=== PATIENT | male | born 1940 | race Caucasian/White ===

== ENCOUNTER 2016-09-18 21:38 | Emergency (ER) | payer MEDICARE, OTHER ==
--- NOTE | 2016-09-18 21:48 | EDM.PDOC ---
ED HPI Trauma - General Chief Complaint: Trauma Stated Complaint: Fall at home; hit head Time Seen by Provider: 09/18/16 21:44 Source: Reports: Patient, EMS notes reviewed, Family, RN, RN notes reviewed History Limitations: Reports: No limitations - History of Present Illness INITIAL COMMENTS - FREE TEXT/NARRATIVE: Patient is brought to the ED at [facility] via EMS after he fell at home. Patient states he was walking through his kitchen to sit down in a chair, when he lost his balance and fell onto the floor. Patient states he hit his right ribs and also hit his head on the the floor. Patient denies any LOC. Patient has a history of multiple falls in the past. Patient complains of right lateral lower rib pain. Patient denies any visual field disturbances. Patient denies any headaches. Patient states he was recently started on Lasix this week in the clinic. Patient states "I got two shots of Lasix and started on 20 mg a day." Symptom Onset Date: 09/18/16 Symptom Onset Time: 21:00 Occurred When: just prior to arrival Occurred Where: home Method of Injury: fall Severity: mild Pain/Injury Location: Reports: chest (right lateral ribs) Consciousness: Reports: no loss of consciousness, remembers incident, remembers coming to hosp Associated Symptoms: Reports: no other symptoms Allergies/ADRs: Allergies penicillin G Allergy (Verified 09/18/16 22:23) Hives rosuvastatin calcium [From Crestor] Adverse Reaction (Verified 09/18/16 22:23) Leg Cramps Home Medications: Ambulatory Orders Clopidogrel [Plavix] 75 mg PO DAILY 09/05/14 [Confirmed 08/11/16] Gabapentin [Neurontin] 600 mg PO BEDTIME 09/05/14 [Confirmed 08/11/16] Lisinopril 20 mg PO DAILY 09/05/14 [Confirmed 08/11/16] Multivitamin [Multi-Vitamin Daily] 1 tab PO DAILY 09/05/14 [Confirmed 08/11/16] Pravastatin [Pravachol] 80 mg PO BEDTIME 09/05/14 [Confirmed 08/11/16] Propranolol HCl [Inderal LA] 120 mg PO DAILY 09/05/14 [Confirmed 08/13/16] Sertraline [Zoloft] 200 mg PO DAILY 09/05/14 [Confirmed 08/11/16] Albuterol [Proventil HFA] 2 puff INH Q4H PRN 06/29/15 [Confirmed 08/11/16] Fluticasone Propionate [Flonase] 1 spray SHIRLEY DAILY 06/29/15 [Confirmed 08/13/16] Pantoprazole 20 mg PO DAILY 06/29/15 [Confirmed 08/11/16] buPROPion [Wellbutrin XL] 150 mg PO DAILY 06/29/15 [Confirmed 08/11/16] Budesonide/Formoterol [Symbicort 160-4.5 MCG] 2 puff INH BID 05/18/16 [ Confirmed 08/11/16] Acetaminophen [Tylenol] 650 mg PO Q4H PRN #0 tablet 05/23/16 [Confirmed 08/11/16 ] Hydrochlorothiazide 25 mg PO DAILY 08/13/16 [Confirmed 08/13/16] Tamsulosin [Flomax] 0.4 mg PO DAILY 08/13/16 [Confirmed 08/13/16] rOPINIRole [Requip] 0.5 mg PO BEDTIME 08/13/16 [Confirmed 08/13/16] Past Medical History HEENT History: Reports: Allergic rhinitis, Hard of hearing, Impaired vision, Sinusitis Other HEENT History: chronic sinusitis, bilat hearing aids, glasses Cardiovascular History: Reports: Aneurysm, High cholesterol, Hypertension, Other (see below) Other Cardiovascular History: subclavian artery stonsis-left, AAA x 2 Respiratory History: Reports: COPD, Sleep apnea, Other (see below) Other Respiratory History: Pneumonia in June of 2015, pleural effusion, collapsed lung, chest tube Gastrointestinal History: Reports: Colon polyp, Diverticulosis, GERD, Hemorrhoids, Irritable bowel syndrome, Other (see below) Other Gastrointestinal History: abdominal aortic aneursymn x 2 Genitourinary History: Reports: Other (see below) Other Genitourinary History: suspects enlarged prostate due to unable to start urine stream Musculoskeletal History: Reports: Arthritis, Back pain, chronic, Other (see below) Other Musculoskeletal History: degenerative joint disease, restless leg syndrome , raynauds sydrome, essential tremor, weakness, hx of rib fx, right wrist fx, right hand Neurological History: Reports: CVA, Neuropathy, peripheral, Other (see below) Other Neuro History: near syncope Psychiatric History: Reports: Addiction, Anxiety, Depression, Emotional problems , Suicidal ideation Other Psychiatric History: recently lost his to cancer Endocrine/Metabolic History: Reports: None, Other (see below) Other Endocrine/Metabolic History: vitamin B12 deficiency, impaired fasting glucose Hematologic History: Reports: B12 deficiency Other Hematologic History: take Plavix Immunologic History: Reports: None Oncologic (Cancer) History: Reports: Other (see below) Other Oncologic History: lipoma of buttock Dermatologic History: Reports: None - Past Surgical History Head Surgeries/Procedures: Reports: None HEENT Surgical History: Reports: Polypectomy Cardiovascular Surgical History: Reports: None Respiratory Surgical History: Reports: Thoracentesis GI Surgical History: Reports: Appendectomy, Colonoscopy, Hernia, inguinal, Polypectomy Endocrine Surgical History: Reports: None Neurological Surgical History: Reports: C-Spine Other Neurological Surgeries/Procedures: c-6 and c5 per pt. Musculoskeletal Surgical History: Reports: Ganglion cyst, Joint replacement, Knee replacement, Other (see below) Other Musculoskeletal Surgeries/Procedures:: both knees replaced. Dermatological Surgical History: Reports: None Social & Family History - Family History Family Medical History: Noncontributory Cardiac: Reports: CAD, Cardiomyopathy, High cholesterol, Hypertension, [place] Musculoskeletal: Reports: Arthritis, Back pain, chronic Neurological: Reports: CVA Other Neurological Family History: sister had CVA Oncologic: Reports: Leukemia Other Oncologic Family History: father of Leukemia - Tobacco Use Smoking Status *Q: Current Every Day Smoker Years of Tobacco use: 60 Packs/Tins Daily: 0.5 Used Tobacco, but Quit: No Month Tobacco Last Used: today Second Hand Smoke Exposure: Yes - Caffeine Use Caffeine Use: Reports: None - Alcohol Use Days Per Week of Alcohol Use: 5 Number of Drinks Per Day: 4 Total Drinks Per Week: 20 - Recreational Drug Use Recreational Drug Use: No Drug Use in Last 12 Months: No Review of Systems - Review of Systems Review Of Systems: See Below Constitutional: Reports: weakness (chronic bilateral leg weakness). Denies: chills, fever Respiratory: Reports: pleuritic chest pain (right lateral lower ribs). Denies: shortness of breath, cough Cardiovascular: Denies: chest pain, lightheadedness, palpitations Musculoskeletal: Denies: neck pain, back pain Skin: Reports: no symptoms Neurological: Reports: difficulty walking (chronic bilateral lower leg weakness) . Denies: dizziness, headache, numbness, paresthesia, tingling ED EXAM, TRAUMA (MAJOR/MULTI) - Physical Exam Exam: See Below Exam Limited By: No limitations General Appearance: alert, no apparent distress Head: atraumatic, normocephalic Eyes: bilateral eye: normal inspection, PERRL Ears: normal external exam, normal canal, hearing grossly normal, normal TMs Nose: normal inspection, normal mucousa, no blood Throat/Mouth: Normal inspection, Normal oropharynx, No airway compromise Neck: non-tender, normal inspection Cardiovascular: normal peripheral pulses, regular rate, rhythm Respiratory/Chest: no respiratory distress, lungs clear, decreased breath sounds , rib tenderness, right Back: normal inspection, non-tender Neurologic: alert, oriented x 3 Skin: Normal color, Warm/dry - Marcos Coma Score Best Eye Response (Marcos): (4) open spontaneously Best Verbal Response ([place]): (5) oriented Best Motor Response (Marcos): (6) obeys commands Marcos Total: 15 Course - Vital Signs Last Recorded V/S: Last Vital Signs Temp 35.9 C 09/18/16 21:55 Pulse 72 09/18/16 21:55 Resp 16 09/18/16 21:55 BP 103/49 L 09/18/16 21:55 Pulse Ox 94 L 09/18/16 21:55 - Orders/Labs/Meds Orders: Active Orders 24 hr Category Date Time Status Head wo Cont [CT] Stat Exams 09/18/16 21:45 Taken Ribs 2V w Chest Rt [CR] Stat Exams 09/18/16 21:45 Taken Sodium Chloride 0.9% [Normal Saline] 1,000 ml Med 09/18/16 22:30 Active IV ASDIRECTED Sodium Chloride 0.9% [Saline Flush] Med 09/18/16 22:19 Active 10 ml FLUSH ASDIRECTED PRN Peripheral IV Insertion Adult [OM.PC] Routine Oth 09/18/16 22:19 Ordered Medication Orders Sodium Chloride (Normal Saline) 1,000 mls @ 999 mls/hr IV ASDIRECTED DAMIAN Last Admin: 09/18/16 22:30 Dose: 999 mls/hr Sodium Chloride (Saline Flush) 10 ml FLUSH ASDIRECTED PRN PRN Reason: Keep Vein Open Labs: Laboratory Tests 09/18/16 09/18/16 Range/Units 22:25 22:25 WBC 6.1 (4.0-10.0) x10^3/uL RBC 3.86 L (4.5-6.0) x10^6/uL Hgb 12.9 L (14.0-18.0) g/dL Hct 38.1 L (40.0-52.0) % MCV 98.7 H (78.0-93.0) fL MCH 33.4 H (26.0-32.0) pg MCHC 33.9 (32.0-36.0) g/dL RDW Coeff of Deric 14.9 (10.0-15.0) % Plt Count 138 (130-400) x10^3/uL Neut % (Auto) 66.9 (50.0-80.0) % Lymph % (Auto) 21.2 L (25.0-50.0) % Titus % (Auto) 8.5 (2.0-11.0) % Eos % (Auto) 3.1 (0.0-4.0) % Baso % (Auto) 0.3 (0.2-1.2) % Sodium 143 (136-145) mmol/L Potassium 3.8 (3.5-5.1) mmol/L Chloride 103 (98-107) mmol/L Carbon Dioxide 28 (21-32) mmol/L BUN 28 H (7-18) mg/dL Creatinine 2.6 H (0.70-1.30) mg/dL Est Cr Clr Drug Dosing 24.55 mL/min Estimated GFR (MDRD) 24 Glucose 98 (74-106) mg/dL Calcium 8.9 (8.5-10.1) mg/dL Ethyl Alcohol 70 H (0-3) mg/dL Meds: Medications Generic Name Dose Route Start Last Admin Trade Name Freq PRN Reason Stop Dose Admin Sodium Chloride 1,000 mls @ 999 mls/hr 09/18/16 22:30 09/18/16 22:30 Normal Saline IV 999 mls/hr ASDIRECTED DAMIAN Administration Sodium Chloride 10 ml 09/18/16 22:19 Saline Flush FLUSH ASDIRECTED PRN Keep Vein Open Departure - Departure Time of Disposition: 22:54 Disposition: Home, Self-Care 01 Condition: good Clinical Impression: Leg weakness, bilateral Closed head injury without loss of consciousness Qualifiers: Encounter type: initial encounter Qualified Code(s): S09.90XA - Unspecified injury of head, initial encounter Fall at home Qualifiers: Encounter type: initial encounter Qualified Code(s): W19.XXXA - Unspecified fall, initial encounter Instructions: Head Injury, Adult, [id number] Referrals: [employer] [Primary Care Provider] - Forms: ED Department Discharge Additional Instructions: 1. Stay well hydrated and rest 2. Continue your current medications; no changes needed 3. Use assistive devices at home to help prevent falls 4. See your Primary Care Provider for a follow up visit; your symptoms may or may not be from recent water pills ED Communication - ED Communication Date/Time Date: 09/18/16 Time Called: 22:45 - Discussed Case With (1) Discussed Case With (1): Radiologist Person/s Notified (1): Travis Miller - Conversation Summary Radiology Reading Discussed with Radiologist: Yes Summary Comment: No acute findings on CT of Head; Rib series is normal - Problem List Review Problem List Initiated/Reviewed/Updated: Yes - My Orders Last 24 Hours: My Active Orders 09/18/16 21:45 Head wo Cont [CT] Stat Ribs 2V w Chest Rt [CR] Stat 09/18/16 22:19 Sodium Chloride 0.9% [Saline Flush] 10 ml FLUSH ASDIRECTED PRN Peripheral IV Insertion Adult [OM.PC] Routine 09/18/16 22:30 Sodium Chloride 0.9% [Normal Saline] 1,000 ml IV ASDIRECTED - Assessment/Plan Last 24 Hours: My Active Orders 09/18/16 21:45 Head wo Cont [CT] Stat Ribs 2V w Chest Rt [CR] Stat 09/18/16 22:19 Sodium Chloride 0.9% [Saline Flush] 10 ml FLUSH ASDIRECTED PRN Peripheral IV Insertion Adult [OM.PC] Routine 09/18/16 22:30 Sodium Chloride 0.9% [Normal Saline] 1,000 ml IV ASDIRECTED
[2016-09-18] MEDS ORDERED: Sodium Chloride 0.9% 10 ML Syringe FLUSH PRN (22:19)
[2016-09-18] MEDS ORDERED: Sodium Chloride 0.9% 1,000 ML IV SCH (22:30)
[2016-09-19 00:57] VITALS: BP 115/59
[2016-09-19] MEDS ORDERED: Norepinephrine 4 MG/4 ML SDV ONE (03:17)
== END 2016-09-19 00:05 | disposition home or self-care (01) ==
LOC: VM.ED 21:38
DX: S09.90XA Unspecified injury of head, initial encounter (principal); M62.81 Muscle weakness (generalized); E78.00 Pure hypercholesterolemia, unspecified; I10 Essential (primary) hypertension; J44.9 Chronic obstructive pulmonary disease, unspecified; F41.9 Anxiety disorder, unspecified; F32.9 Major depressive disorder, single episode, unspecified; F17.210 Nicotine dependence, cigarettes, uncomplicated; Z88.0 Allergy status to penicillin; Z88.8 Allergy status to other drugs, medicaments and biological substances; Z79.899 Other long term (current) drug therapy; W19.XXXA Unspecified fall, initial encounter
CPT/HCPCS: 36415; 70450; 71101; 80048; 85025; 96360; 99285; G0480; J7030; 99283-GF

== ENCOUNTER 2016-09-19 02:55 | Emergency (ER) | payer MEDICARE, OTHER ==
[2016-09-19] MEDS ORDERED: Sodium Chloride 0.9% 10 ML Syringe FLUSH PRN (03:02)
--- NOTE | 2016-09-19 03:09 | EDM.PDOC ---
ED HISTORY OF PRESENT ILLNESS - General Chief Complaint: Respiratory Problem Stated Complaint: WEAKNESS, HYPOTENSION Time Seen by Provider: 09/19/16 03:01 Source of Information: Reports: EMS notes reviewed, Family, RN, RN notes reviewed History Limitations: Reports: No limitations - History of Present Illness INITIAL COMMENTS - FREE TEXT/NARRATIVE: Patient is brought back to the ED at [facility] via EMS for hypotension, weakness, and obtunded. Patient was seen in this ER one hour prior for a fall at home. Patient was medically cleared through CT scans, blood work, and stable vitals and was sent home. According to EMS, patient was brought home from this facility by his daughter. He was placed on the cough at home. Apparently the patient wanted to get up from the cough and was too weak. The daughter checked his blood pressure and it was in the 60's. 911 was called again. Symptom Onset Date: 09/19/16 Symptom Onset Time: 02:00 Timing/Duration: Reports: Getting worse Severity: mild - Related Data Allergies/ADRs: Allergies Allergy/AdvReac Type Severity Reaction Status Date / Time penicillin G Allergy Hives Verified 09/18/16 22:23 rosuvastatin calcium AdvReac Leg Cramps Verified 09/18/16 22:23 [From Crestor] Home Meds: Home Meds Clopidogrel [Plavix] 75 mg PO DAILY 09/05/14 [History] Gabapentin [Neurontin] 600 mg PO BEDTIME 09/05/14 [History] Lisinopril 20 mg PO DAILY 09/05/14 [History] Multivitamin [Multi-Vitamin Daily] 1 tab PO DAILY 09/05/14 [History] Pravastatin [Pravachol] 80 mg PO BEDTIME 09/05/14 [History] Propranolol HCl [Inderal LA] 120 mg PO DAILY 09/05/14 [History] Sertraline [Zoloft] 200 mg PO DAILY 09/05/14 [History] Albuterol [Proventil HFA] 2 puff INH Q4H PRN 06/29/15 [History] Fluticasone Propionate [Flonase] 1 spray SHIRLEY DAILY 06/29/15 [History] Pantoprazole 20 mg PO DAILY 06/29/15 [History] buPROPion [Wellbutrin XL] 150 mg PO DAILY 06/29/15 [History] Budesonide/Formoterol [Symbicort 160-4.5 MCG] 2 puff INH BID 05/18/16 [History] Acetaminophen [Tylenol] 650 mg PO Q4H PRN #0 tablet 05/23/16 [Rx] Hydrochlorothiazide 25 mg PO DAILY 08/13/16 [History] Tamsulosin [Flomax] 0.4 mg PO DAILY 08/13/16 [History] rOPINIRole [Requip] 0.5 mg PO BEDTIME 08/13/16 [History] Past Medical History HEENT History: Reports: Allergic rhinitis, Hard of hearing, Impaired vision, Sinusitis Other HEENT History: chronic sinusitis, bilat hearing aids, glasses Cardiovascular History: Reports: Aneurysm, High cholesterol, Hypertension, Other (see below) Other Cardiovascular History: subclavian artery stonsis-left, AAA x 2 Respiratory History: Reports: COPD, Sleep apnea, Other (see below) Other Respiratory History: Pneumonia in June of 2015, pleural effusion, collapsed lung, chest tube Gastrointestinal History: Reports: Colon polyp, Diverticulosis, GERD, Hemorrhoids, Irritable bowel syndrome, Other (see below) Other Gastrointestinal History: abdominal aortic aneursymn x 2 Genitourinary History: Reports: Other (see below) Other Genitourinary History: suspects enlarged prostate due to unable to start urine stream Musculoskeletal History: Reports: Arthritis, Back pain, chronic, Other (see below) Other Musculoskeletal History: degenerative joint disease, restless leg syndrome , raynauds sydrome, essential tremor, weakness, hx of rib fx, right wrist fx, right hand Neurological History: Reports: CVA, Neuropathy, peripheral, Other (see below) Other Neuro History: near syncope Psychiatric History: Reports: Addiction, Anxiety, Depression, Emotional problems , Suicidal ideation Other Psychiatric History: recently lost his to cancer Endocrine/Metabolic History: Reports: None, Other (see below) Other Endocrine/Metabolic History: vitamin B12 deficiency, impaired fasting glucose Hematologic History: Reports: B12 deficiency Other Hematologic History: take Plavix Immunologic History: Reports: None Oncologic (Cancer) History: Reports: Other (see below) Other Oncologic History: lipoma of buttock Dermatologic History: Reports: None - Past Surgical History Head Surgeries/Procedures: Reports: None HEENT Surgical History: Reports: Polypectomy Cardiovascular Surgical History: Reports: None Respiratory Surgical History: Reports: Thoracentesis GI Surgical History: Reports: Appendectomy, Colonoscopy, Hernia, inguinal, Polypectomy Endocrine Surgical History: Reports: None Neurological Surgical History: Reports: C-Spine Other Neurological Surgeries/Procedures: c-6 and c5 per pt. Musculoskeletal Surgical History: Reports: Ganglion cyst, Joint replacement, Knee replacement, Other (see below) Other Musculoskeletal Surgeries/Procedures:: both knees replaced. Dermatological Surgical History: Reports: None Social & Family History - Family History Family Medical History: Noncontributory Cardiac: Reports: CAD, Cardiomyopathy, High cholesterol, Hypertension, [place] Musculoskeletal: Reports: Arthritis, Back pain, chronic Neurological: Reports: CVA Other Neurological Family History: sister had CVA Oncologic: Reports: Leukemia Other Oncologic Family History: father of Leukemia - Tobacco Use Smoking Status *Q: Current Every Day Smoker Years of Tobacco use: 60 Packs/Tins Daily: 0.5 Used Tobacco, but Quit: No Month Tobacco Last Used: today Second Hand Smoke Exposure: Yes - Caffeine Use Caffeine Use: Reports: None - Alcohol Use Days Per Week of Alcohol Use: 5 Number of Drinks Per Day: 4 Total Drinks Per Week: 20 - Recreational Drug Use Recreational Drug Use: No Drug Use in Last 12 Months: No ED ROS GENERAL - Review of Systems Review Of Systems: See Below Constitutional: Reports: weakness. Denies: fever, chills Respiratory: Denies: shortness of breath, cough Cardiovascular: Reports: Blood pressure problem. Denies: Chest pain, Palpitations Skin: Reports: no symptoms Neurological: Reports: dizziness, tremors. Denies: headache, numbness, paresthesia, tingling ED EXAM, GENERAL - Physical Exam Exam: See Below Exam Limited By: No limitations General Appearance: no apparent distress, obtunded, cachetic Eye Exam: bilateral eye: EOMI, normal inspection, PERRL Respiratory/Chest: no respiratory distress, lungs clear, decreased breath sounds Cardiovascular: regular rate, rhythm Peripheral Pulses: 1+: radial (L), radial (R) Neurological: inattentive, confused, disoriented, slow to respond Skin Exam: Warm, Dry, Intact, Normal color, No rash Course - Orders/Labs/Meds Orders: Active Orders 24 hr Category Date Time Status Norepinephrine [Levophed] 4 mg Med 09/19/16 03:15 Active Dextrose 5% in Water 246 ml IV TITRATE Sodium Chloride 0.9% [Normal Saline] 1,000 ml Med 09/19/16 03:15 Active IV ASDIRECTED Sodium Chloride 0.9% [Saline Flush] Med 09/19/16 03:02 Active 10 ml FLUSH ASDIRECTED PRN Peripheral IV Insertion Adult [OM.PC] Routine Oth 09/19/16 03:02 Ordered Medication Orders Norepinephrine Bitartrate 4 mg (/ Dextrose/Water) 250 mls @ 7.5 mls/hr IV TITRATE DAMIAN; 2 MCG/MIN PRN Reason: Protocol Sodium Chloride (Normal Saline) 1,000 mls @ 30 mls/hr IV ASDIRECTED DAMIAN Sodium Chloride (Saline Flush) 10 ml FLUSH ASDIRECTED PRN PRN Reason: Keep Vein Open Meds: Medications Generic Name Dose Route Start Last Admin Trade Name Freq PRN Reason Stop Dose Admin Norepinephrine Bitartrate 4 mg 250 mls @ 7.5 mls/hr 09/19/16 03:15 / Dextrose/Water IV TITRATE DAMIAN Protocol 2 MCG/MIN Sodium Chloride 1,000 mls @ 30 mls/hr 09/19/16 03:15 Normal Saline IV ASDIRECTED DAMIAN Sodium Chloride 10 ml 09/19/16 03:02 Saline Flush FLUSH ASDIRECTED PRN Keep Vein Open Departure - Departure Time of Disposition: 03:40 Disposition: DC/Tfer to [facility] 02 Condition: fair Clinical Impression: Acute kidney injury (nontraumatic) Hypotension Qualifiers: Hypotension type: unspecified hypotension type Qualified Code(s): I95.9 - Hypotension, unspecified Altered mental status Qualifiers: Altered mental status type: transient alteration of awareness Qualified Code(s) : R40.4 - Transient alteration of awareness Forms: Interfacility Transfer [facility] ED Communication - ED Communication Date/Time Date: 09/19/16 Time Called: 03:39 - Discussed Case With (1) Discussed Case With (1): Admitting Provider (Derick Bowles accepted patient in transfer. Full report given to Dr. Dudley by transferring provider.) - Conversation Summary Admitting Provider Agreed to Patient's Admission: Yes - Problem List Review Problem List Initiated/Reviewed/Updated: Yes - My Orders Last 24 Hours: My Active Orders 09/19/16 03:02 Sodium Chloride 0.9% [Saline Flush] 10 ml FLUSH ASDIRECTED PRN Peripheral IV Insertion Adult [OM.PC] Routine 09/19/16 03:15 Norepinephrine [Levophed] 4 mg Dextrose 5% in Water 246 ml IV TITRATE Sodium Chloride 0.9% [Normal Saline] 1,000 ml IV ASDIRECTED - Assessment/Plan Last 24 Hours: My Active Orders 09/19/16 03:02 Sodium Chloride 0.9% [Saline Flush] 10 ml FLUSH ASDIRECTED PRN Peripheral IV Insertion Adult [OM.PC] Routine 09/19/16 03:15 Norepinephrine [Levophed] 4 mg Dextrose 5% in Water 246 ml IV TITRATE Sodium Chloride 0.9% [Normal Saline] 1,000 ml IV ASDIRECTED
[2016-09-19] MEDS ORDERED: Norepinephrine 4 MG in Dextrose 5% in Water 246 ML IV SCH ×2 (03:15)
[2016-09-19] MEDS ORDERED: Sodium Chloride 0.9% 1,000 ML IV SCH (03:15)
[2016-09-19 06:11] VITALS: BP 100/52
== END 2016-09-19 04:34 | disposition short-term general hospital (02) ==
LOC: VM.ED 02:55
DX: N17.9 Acute kidney failure, unspecified (principal); I95.9 Hypotension, unspecified; R41.82 Altered mental status, unspecified; Z91.81 History of falling; J32.9 Chronic sinusitis, unspecified; I71.4 Abdominal aortic aneurysm, without rupture; E78.00 Pure hypercholesterolemia, unspecified; I10 Essential (primary) hypertension; J44.9 Chronic obstructive pulmonary disease, unspecified; G47.30 Sleep apnea, unspecified; Z87.01 Personal history of pneumonia (recurrent); M54.9 Dorsalgia, unspecified; G89.29 Other chronic pain; M19.90 Unspecified osteoarthritis, unspecified site; G25.81 Restless legs syndrome; I73.00 Raynaud's syndrome without gangrene; G25.0 Essential tremor; R53.1 Weakness; Z87.81 Personal history of (healed) traumatic fracture; Z86.73 Personal history of transient ischemic attack (TIA), and cerebral infarction without residual deficits; G62.9 Polyneuropathy, unspecified; F10.20 Alcohol dependence, uncomplicated; F41.9 Anxiety disorder, unspecified; F33.9 Major depressive disorder, recurrent, unspecified; R45.851 Suicidal ideations; E53.8 Deficiency of other specified B group vitamins; Z79.02 Long term (current) use of antithrombotics/antiplatelets; R73.01 Impaired fasting glucose; Z96.653 Presence of artificial knee joint, bilateral; F17.200 Nicotine dependence, unspecified, uncomplicated; Z79.899 Other long term (current) drug therapy; Z79.51 Long term (current) use of inhaled steroids; Z88.0 Allergy status to penicillin
CPT/HCPCS: 51702; 96365; 99285; J7030; 99284-GF; J7060

== ENCOUNTER 2016-10-01 00:53 | Observation (INO) | payer MEDICARE, OTHER ==
[2016-10-01] MEDS ORDERED: Acetaminophen/HYDROcodone 325-10 MG Tab PO ONE (02:50)
--- NOTE | 2016-10-01 05:06 | ER ---
Date of Service: 10/01/2016 SUBJECTIVE: Eddie presents to the emergency room status post fall. The patient states that he fell against the edge of a tub and sustained a skin tear/abrasion to his tailbone. He also fell on his right hip and sustained a large hematoma to the lateral aspect of the hip. He states that the family was having extreme difficulty with getting him to stand, so law enforcement was summoned for a lift assist. EMS was subsequently summoned due to the bleeding from his tailbone. The patient was recently transferred to [facility] in [place] for profound dehydration, sepsis, and hypotension requiring IV Levophed. He subsequently was discharged and sent back home. The patient does have a history of alcoholism and did consume at least 1 alcoholic drink at night. The patient recently lost his to cancer and the patient has been extremely distraught throughout the night due to the loss of his approximately a year and a half ago. PAST MEDICAL HISTORY: 1. COPD. 2. Chronic back pain and lower extremity weakness secondary to spinal stenosis. 3. Cerebrovascular accident. 4. Recent recurrent pleural effusion. 5. Hypertension. 6. Hypercholesterolemia. 7. History of alcoholism. 8. Subclavian artery stenosis. 9. AAA. 10.B12 deficiency. 11.Impaired fasting blood glucose. 12.Obstructive sleep apnea. MEDICATIONS: 1. ProAir HFA 2 puffs every 4 hours as needed for shortness of breath. 2. Symbicort 160/4.5 mcg 2 puffs in the lungs 2 times a day. 3. Wellbutrin XL 150 mg once daily. 4. Plavix 75 mg daily. 5. Zetia 10 mg daily. 6. Prozac 20 mg daily. 7. Flonase 50 mcg 1 spray to both nares once daily. 8. Neurontin 300 mg tablets 2 tablets by mouth at bedtime. 9. Hydrochlorothiazide 25 mg once daily. 10.Lisinopril 20 mg once daily. 11.Multivitamin/minerals once daily. 12.Protonix 20 mg daily. 13.Pravachol 80 mg daily. 14.Inderal LA 120 mg p.o. at bedtime. 15.Requip 0.5 mg by mouth 2 times a day. 16.Flomax 0.4 mg by mouth once daily. ALLERGIES: Penicillin G and rosuvastatin. REVIEW OF SYSTEMS: Constitutional: Denies any fever or chills. HEENT: No sore throat, rhinorrhea, or congestion. Respiratory: No shortness of breath. Cardiac: Denies any substernal chest pain. No jaw, arm, neck, or back pain. GI: Nausea, vomiting, or diarrhea. No melena, hematochezia, or hematemesis. : Denies any dysuria. Again, he did sustain a skin tear to his buttocks. Musculoskeletal: Did fall onto his right hip. Does complain of right hip and pelvic pain. Neurologic: No fainting, blackouts. No seizure activity. The fall may have been precipitated by administration of 2 Tylenol PM prior to bed. DIAGNOSTIC DATA: Radiographs of the patient's pelvis and right hip were obtained. There was no evidence of any obvious fracture. EMERGENCY ROOM COURSE: The skin tear to the patient's tailbone was cleansed with Shur-Clens and normal saline. [place] skin adhesive was applied to the skin tear. The patient tolerated this well. He was continuing to experience severe discomfort post fall and was given Flushing 10/325 one p.o. here in the emergency room. The patient was unable to ambulate, so subsequently was admitted to our facility on observation status for pain control and to assist with ambulation. ASSESSMENT: 1. Pelvic and hip pain post fall. 2. Skin tear to the coccyx/buttocks. PLAN: Again, the patient will be admitted on observation status. We will have PT and OT evaluate in the morning and hopefully, will discharge at that time. We will manage his pain. It would be very difficult to get him into his house at this time. He lives alone with his daughter. All questions were answered. MWK: 10/01/2016 03:23:58 MODL: 10/01/2016 04:58:42 /[id number]
[2016-10-01] MEDS ORDERED: Acetaminophen 325 MG Tab PO PRN (05:48)
[2016-10-01] MEDS ORDERED: Albuterol 8 GM Inhaler INH PRN (05:48)
[2016-10-01 08:20] LABS: CHLORIDE,CL 110 mmol/L (98-107); SODIUM,NA 146 mmol/L (136-145)
[2016-10-01] MEDS: FLUoxetine 20 MG Cap PO SCH (08:52)
[2016-10-01] MEDS: Hydrochlorothiazide 25 MG Tab PO SCH (08:52)
[2016-10-01] MEDS: rOPINIRole 0.5 MG Tab PO SCH ×2 (08:53→20:28)
[2016-10-01] MEDS: Acetaminophen/HYDROcodone 325-10 MG Tab PO PRN ×4 (08:53→22:15)
[2016-10-01] MEDS: Lisinopril 20 MG Tab PO SCH (08:53)
[2016-10-01] MEDS: Multivitamins with Iron/Calcium/Folic Acid/Minerals Tab PO SCH (08:53)
[2016-10-01] MEDS: Ezetimibe 10 MG Tab PO SCH (08:53)
[2016-10-01] MEDS: Tamsulosin 0.4 MG Cap.ER PO SCH (08:53)
[2016-10-01] MEDS: Clopidogrel 75 MG Tab PO SCH (08:53)
[2016-10-01] MEDS: buPROPion 150 MG Tab.ER PO SCH (08:53)
[2016-10-01] MEDS: Formoterol/Mometasone 200-5 MCG 8.8 GM Inhaler IH SCH ×2 (08:56→20:27)
[2016-10-01] MEDS: Fluticasone Propionate Nasal Spray 16 GM Bottle NAS SCH (08:56)
[2016-10-01] MEDS: Pantoprazole 40 MG Tab.CR PO SCH (10:37)
[2016-10-01] MEDS ORDERED: Simvastatin 40 MG Tab PO SCH (20:00)
[2016-10-01] MEDS ORDERED: Gabapentin 300 MG Cap PO SCH (20:00)
[2016-10-01] MEDS ORDERED: Propranolol 60 MG Cap.ER PO SCH (20:00)
--- NOTE | 2016-10-01 21:08 | PN ---
Progress Note for RICARDO TEIXEIRA Date: 10/01/2016 Room #: VM.219 SUBJECTIVE: Mr. Teixeira was admitted to our facility early this morning with fall and bruising to the buttocks and coccyx as well as contusion to right hip. The patient had been given 2 Tylenol p.m. and had consumed some alcohol last night. He did get up to apparently use the bathroom and suffered the fall. He did not strike his head. The patient's daughter, who he lives with, subsequently called law enforcement to come and help lift the patient, but the patient was found to be bleeding from the skin tear near his coccyx. EMS was subsequently summoned and the patient was transported to our facility. The patient was found to have a skin tear/abrasion to his coccyx, which was cleansed thoroughly and Weld skin protector was placed over the abrasion. Hemostasis has been achieved since then. The patient was extremely weak last night, so decision was made to admit the patient on observation status. OBJECTIVE: Vital Signs: Blood pressure is 111/54, pulse rate 79, temperature is 36.4, respiratory rate is 19, O2 saturations 93% on room air. Skin: Warm, pink, and dry. HEENT: Head is normocephalic, atraumatic. Mouth, oral mucosa is moist. No erythema or exudate. No hypopharynx. Neck: Supple. No masses. There is no lymphadenopathy. Lungs: Clear to auscultation. Heart: Regular rate and rhythm. Abdomen: Soft and nontender. There is no hepatosplenomegaly noted. There are no masses noted. : Evaluation of the skin tear/abrasion to the patient's coccyx reveals a continued hemostasis. No significant skin breakdown noted. There is significant contusion and edema surrounding the open skin lesion. Remainder of his physical examination is within normal limits. LABORATORY DATA: WBCs 4.5, hemoglobin is 12.4, platelets are 141. Chemistry, sodium is 146, potassium is 3.3, chloride is 110, bicarb is 24, BUN is 11, creatinine is 1.1. GFR is greater than 60. Glucose is 105, calcium is 8.5, C- reactive protein is 0.7. Radiographic Data: The read on the hip and pelvis radiographs stated that there was a possible lucency through the right femoral neck consistent with a hip fracture. Subsequently, a noncontrast CT scan of the patient's right hip was obtained. There was no evidence of any acute fracture on this exam. ASSESSMENT: 1. Contusions to coccyx and buttocks post fall. 2. Contusion to right hip. 3. General debility and acute on chronic weakness. PLAN: We will have the patient on physical therapy today. He continues to be quite weak, so a decision was made to keep the patient admitted for one more day. We will evaluate at that time to see if he is ready to be discharged. I discussed findings with the patient and family. Rod Hanger are working on possibly getting the patient into the transitional care unit at the [facility] here in [place]. All questions were answered. MWK: 10/01/2016 20:20:59 MODL: 10/01/2016 20:59:54 /[id number]
[2016-10-02] MEDS: Acetaminophen/HYDROcodone 325-10 MG Tab PO PRN (05:27)
[2016-10-02] MEDS: Formoterol/Mometasone 200-5 MCG 8.8 GM Inhaler IH SCH (08:08)
[2016-10-02] MEDS: Fluticasone Propionate Nasal Spray 16 GM Bottle NAS SCH (08:08)
[2016-10-02] MEDS: buPROPion 150 MG Tab.ER PO SCH (08:09)
[2016-10-02] MEDS: Clopidogrel 75 MG Tab PO SCH (08:09)
[2016-10-02] MEDS: Ezetimibe 10 MG Tab PO SCH (08:09)
[2016-10-02] MEDS: rOPINIRole 0.5 MG Tab PO SCH (08:10)
[2016-10-02] MEDS: Hydrochlorothiazide 25 MG Tab PO SCH (08:10)
[2016-10-02] MEDS: Lisinopril 20 MG Tab PO SCH (08:10)
[2016-10-02] MEDS: Tamsulosin 0.4 MG Cap.ER PO SCH (08:10)
[2016-10-02] MEDS: Multivitamins with Iron/Calcium/Folic Acid/Minerals Tab PO SCH (08:10)
[2016-10-02] MEDS: Pantoprazole 40 MG Tab.CR PO SCH (08:10)
[2016-10-02] MEDS: FLUoxetine 20 MG Cap PO SCH (08:10)
[2016-10-02 09:52] VITALS: BP 120/63
--- NOTE | 2016-10-03 07:49 | ER ---
Date of Service: 10/01/2016 ADDENDUM: This emergency room note maybe used as his admission H and P. MWK: 10/02/2016 18:51:31 MODL: 10/02/2016 21:21:02 /[id number]
--- NOTE | 2016-10-15 07:50 | DISCH ---
ADMITTING PROVIDER: Morales Johnson PA-C. DISCHARGING PROVIDER: Morales Johnson PA-C. ADMISSION DIAGNOSES: 1. Pelvic and hip pain post fall. 2. Skin tear to the coccyx/buttocks. SUBJECTIVE: The patient presented to the ER on 10/01/2016 with a fall. The patient states that he fell against the edge of a tub and sustained a skin tear/abrasion to his tailbone. The patient's daughter subsequently summoned law enforcement for lift assist, but they were unable to get the patient off the floor. EMS was subsequently contacted. The patient was then transported to [facility] and was admitted, and the abrasion was closed with [place] skin adhesive. The patient underwent pelvic and hip x-rays as well as CT scan of the patient's right hip, which was negative for acute pathology. PHYSICAL EXAMINATION: Discharge vital signs: Blood pressure is 120/63, pulse rate 71, temperature is 36.1, respiratory rate 16, and O2 saturations 95%. Skin: Warm, pink, and dry. HEENT: Head is normocephalic, atraumatic. Lungs: Clear to auscultation. Heart: Regular rate and rhythm. Abdomen: Soft, nontender. There is no mass noted. There is no hepatosplenomegaly noted. Pelvis: Stable. He does have continued ecchymosis to the right lateral hip area. There has been no obvious crepitus or deformity noted. HOSPITAL COURSE: The patient was started on physical therapy and has done well. He has been ambulating short distances with assistance of one. DISPOSITION: To transitional care unit at [facility]. DISCHARGE CONDITION: Good. MEDICATIONS: Please see MAR. FOLLOWUP: Follow up with [facility] in 10 to 14 days. MWK: 10/14/2016 21:40:12 MODL: 10/15/2016 01:52:05 /[id number]
== END 2016-10-02 12:10 | disposition home or self-care (01) ==
LOC: VM.ED 00:53 → VM.MS 02:20
PROVIDERS: ADMIT Physician Assistant; ATTEND Physician Assistant
DX: S30.0XXA Contusion of lower back and pelvis, initial encounter (principal); S70.01XA Contusion of right hip, initial encounter; R53.81 Other malaise; R53.1 Weakness; Z88.0 Allergy status to penicillin; J44.9 Chronic obstructive pulmonary disease, unspecified; I10 Essential (primary) hypertension; E78.00 Pure hypercholesterolemia, unspecified; G47.33 Obstructive sleep apnea (adult) (pediatric); I71.4 Abdominal aortic aneurysm, without rupture; W19.XXXA Unspecified fall, initial encounter; Z88.8 Allergy status to other drugs, medicaments and biological substances; Z79.899 Other long term (current) drug therapy; I63.9 Cerebral infarction, unspecified; Z79.01 Long term (current) use of anticoagulants
CPT/HCPCS: 36415; 73502; 73700; 80048; 85025; 86140; 97110; 97116; 97161; 97165; 99285; A9270; G0378; 12002; 99217; 99219

== ENCOUNTER 2016-11-22 15:44 | Observation (INO) | payer MEDICARE, OTHER ==
[2016-11-22 17:14] LABS: CHLORIDE,CL 104 mmol/L (98-107); SODIUM,NA 140 mmol/L (136-145)
[2016-11-22] MEDS ORDERED: Sodium Chloride 0.9% 100 ML IV ONE (17:27)
[2016-11-22] MEDS ORDERED: Iopamidol 612 MG/ML 100 ML Bottle IVPUSH ONE (17:27)
[2016-11-22] MEDS ORDERED: HYDROmorphone 1 MG/ML Syringe IVPUSH ONE ×2 (18:31→19:00)
[2016-11-22] MEDS: Acetaminophen/HYDROcodone 325-10 MG Tab PO PRN (22:46)
[2016-11-23] MEDS ORDERED: Fluticasone Propionate Nasal Spray 16 GM Bottle NASBOTH PRN (01:08)
[2016-11-23] MEDS ORDERED: Albuterol 8 GM Inhaler INH PRN (01:08)
[2016-11-23] MEDS ORDERED: traMADol 50 MG Tab PO PRN (01:17)
[2016-11-23] MEDS ORDERED: NS + KCl 20mEq/L 1,000 ML IV SCH (01:30)
[2016-11-23] MEDS: Acetaminophen/HYDROcodone 325-10 MG Tab PO PRN ×3 (03:04→13:17)
[2016-11-23] MEDS ORDERED: Formoterol/Mometasone 200-5 MCG 8.8 GM Inhaler IH SCH (07:00)
[2016-11-23 07:07] LABS: CHLORIDE,CL 106 mmol/L (98-107); SODIUM,NA 143 mmol/L (136-145)
--- NOTE | 2016-11-23 07:31 | ER ---
Date of Service: 11/22/2016 SUBJECTIVE: Eddie presents to the emergency room with complaints of. DICTATION ENDS HERE MWK: 11/23/2016 06:43:44 MODL: 11/23/2016 07:07:19 /[id number]
[2016-11-23] MEDS ORDERED: FLUoxetine 20 MG Cap PO SCH (08:00)
[2016-11-23] MEDS ORDERED: Hydrochlorothiazide 25 MG Tab PO SCH (08:00)
[2016-11-23] MEDS ORDERED: buPROPion 150 MG Tab.ER PO SCH (08:00)
[2016-11-23] MEDS ORDERED: Ezetimibe 10 MG Tab PO SCH (08:00)
[2016-11-23] MEDS ORDERED: Clopidogrel 75 MG Tab PO SCH (08:00)
[2016-11-23] MEDS ORDERED: rOPINIRole 0.5 MG Tab PO SCH (08:00)
[2016-11-23] MEDS ORDERED: Multivitamins with Iron/Calcium/Folic Acid/Minerals Tab PO SCH (08:00)
[2016-11-23] MEDS ORDERED: Tamsulosin 0.4 MG Cap.ER PO SCH (08:00)
[2016-11-23] MEDS ORDERED: Lisinopril 20 MG Tab PO SCH (08:00)
--- NOTE | 2016-11-23 08:01 | ER ---
Date of Service: 11/22/2016 SUBJECTIVE: Eddie presents to the emergency room with complaints of increasing low back pain and global weakness. The patient has a history of chronic low back pain secondary to spinal stenosis and is a frequent utilizer of the emergency room for acute on chronic lumbar back pain. He is often admitted for pain control and physical therapy, and then subsequently discharged home. After his last admission in end of September, he was sent to the transitional care area at [facility] for 10 days to rehab following a fall and skin tear to his buttocks. Since then, he has been doing physical therapy at home and daughter states that over the past several days he has been experiencing this increased weakness. The patient is covered by [employer] one of the mid levels that the [facility] here in [place]. The patient offers no other complaint other than global weakness and difficulties with ambulating over the past several days. He states that he has had some mild cough, but has been nonproductive. He has not been experiencing any dysuria. The patient states that he has not had any recent falls. He does continue to drink alcohol at home and to note, the patient does continue to operate a motor vehicle as well. The patient did receive IV Dilaudid and Valium via EMS prior to arrival to the emergency room. PAST MEDICAL HISTORY: 1. COPD. 2. Chronic back pain with lower motor weakness secondary to spinal stenosis. 3. History of cerebrovascular accident. 4. History of recurrent pleural effusion. 5. Hypertension. 6. Hypercholesterolemia. 7. History of alcoholism. 8. Subclavian artery stenosis. 9. AAA. 10.Vitamin B12 deficiency. 11.Impaired fasting blood glucose. 12.Obstructive sleep apnea. MEDICATIONS: 1. Requip 0.5 mg p.o. b.i.d. 2. Wellbutrin XL 150 mg p.o. daily. 3. Flomax 0.4 mg p.o. daily. 4. Inderal LA 120 mg p.o. at bedtime. 5. Pravachol 80 mg p.o. with dinner. 6. Pantoprazole 20 mg p.o. daily. 7. Multivitamin 1 tablet daily. 8. Lisinopril 20 mg p.o. daily. 9. Hydrochlorothiazide 25 mg daily. 10.Neurontin 600 mg p.o. at bedtime. 11.Flonase 1 spray to both nares daily p.r.n. 12.Prozac 20 mg p.o. daily. 13.Zetia 10 mg p.o. daily. 14.Plavix 75 mg p.o. daily. 15.Symbicort 160/4.5 mcg inhaled b.i.d. 16.Proventil HFA 2 puffs inhaled q.4 hours p.r.n. ALLERGIES: Penicillin, rosuvastatin, and morphine; however, the patient states that he does not believe that his penicillin or morphine allergy are true allergies and are more likely side effects from the medications. REVIEW OF SYSTEMS: General: Denies fever or chills. Again, does complain of severe global weakness. HEENT: No sore throat, rhinorrhea, or congestion. Respiratory: No shortness of breath. Cardiac: No chest pain, palpitations, jaw, arm, neck or back pain. GI: No nausea, vomiting, or diarrhea. No melena, hematochezia, or hematemesis. : Denies any dysuria. Musculoskeletal: No myalgias or arthralgias. Neurologic: No fainting, blackouts, or lightheadedness. Again, he does complain of global weakness in both his upper and lower extremities. PHYSICAL EXAMINATION: General: This is a 76-year-old male patient, who appears to be quite depressed, but that does not appear to be in any significant discomfort. To note, he did receive IV pain medication pre-hospital. Vital Signs: Heart rate is 114, blood pressure is 154/77, respiratory rate is 20, and O2 saturations 95%. Skin: Warm, pink, and dry. HEENT. Head is normocephalic, atraumatic. Eyes, PERRLA. Extraocular movements are intact. Ears, TMs are clear. Mouth, oral mucosa is moist. Lungs: Clear to auscultation. Heart: Regular rate and rhythm. Abdomen: Soft, nontender. There is no hepatosplenomegaly noted. There are no masses noted. Extremities: Without edema. Musculoskeletal: Again, he does have pain in the mid-to-low lumbar region of his spine. No obvious step-offs or deformity noted. Neurologic: Cranial 2 through 12 are intact. His speech is fluent. His gait is within normal limits. He has approximately 4/5 strength in his upper extremities and 3/5 strength in his lower extremities. Patellar and brachioradialis reflexes are 2+. He has no pronator drift. No obvious new facial droop or dysarthria noted. LABORATORY DATA: Portable chest x-ray was obtained. There was no evidence of any acute infiltrate. CBC was obtained, WBC 5.2, hemoglobin is 12.0, and platelets are 120. PT is 10.4 and INR is 0.9. Sodium is 140, potassium is 3.4, chloride is 104, bicarb is 27, BUN is 17, creatinine is 1.2, GFR is 59, glucose is 94, lactic acid mildly elevated at 2.3, calcium is 8.7, and corrected calcium is 9.02. Total bilirubin is 0.6, AST is 24, ALT is 35, and alkaline phosphatase is 54. CK is 78 and troponin is less than 0.017. C-reactive protein is less than 0.2. Albumin is 3.6. TSH is 2.346. Urinalysis was obtained, pH was 7.0, specific gravity is 1.015, negative for glucose, ketones, occult blood, nitrites, bilirubin, urobilinogen, leukocyte esterase, and nitrites. Blood alcohol was obtained and was less than 3. CT scan of the patient's lumbar spine with IV contrast was obtained. There was no evidence of any diskitis or osteomyelitis or other obvious cause for his increased back discomfort and lower motor weakness. ASSESSMENT: Global weakness. PLAN: The patient is too weak to transition home at this point. We will admit him in observation status and do a social service consult with him tomorrow and likely get him started on self-pay swing. Again, at this point, he does not meet criteria for an acute admission. We will repeat his labs in the morning. We will rehydrate and give him some IV fluids overnight. We will also re- evaluate his chest x-ray in the morning as well. The patient is a code level 1. He will be admitted to observation on the ER provider service. MWK: 11/22/2016 19:57:55 MODL: 11/22/2016 21:06:33 /[id number]
--- NOTE | 2016-11-23 09:34 | PN ---
Progress Note for EDDIE TEIXEIRA Date: 11/23/2016 Room #: VM.217 SUBJECTIVE: Eddie was admitted to our facility yesterday afternoon with global weakness and increasing back pain. He underwent a CT scan with IV contrast of his lumbar spine and there was no evidence of any diskitis or osteomyelitis. The patient was treated with IV Dilaudid in the emergency room for his back pain and was transitioned to oral hydrocodone and tramadol since he has been admitted on observation status. The patient is [facility] [place]. The patient's daughter states that the patient has been drinking again, but has not been consuming alcohol on a daily basis. Please see H and P for further details of admission. PHYSICAL EXAMINATION: General: This morning blood pressure is 130/58, pulse rate is 70, temperature is 36.3, respiratory rate is 20, and O2 saturations 97%. Skin: Warm, pink, and dry. HEENT: Mouth, oral mucosa is moist. Lungs: Clear to auscultation. Heart: Regular rate and rhythm. Abdomen: Soft, nontender. There is no hepatosplenomegaly or masses noted. Extremities: Without edema. Neurologic: Cranial nerves II through XII are intact. His speech is fluent. He is using a walker to ambulate. He has 2+ reflexes in both of his upper and lower extremities. He continues to have approximately 3/5 strength in his lower extremities. ASSESSMENT: 1. Acute on chronic lumbar back pain. 2. Global weakness. PLAN: We will discuss transitioning the patient to self-pay swing bed today. He did receive some IV normal saline with KCl over night and his potassium is normalized and he is euvolemic. We will continue with PT and OT. We will discuss transitioning him to self-pay swing with social media developer. MWK: 11/23/2016 09:11:45 MODL: 11/23/2016 09:26:39 /[id number]
[2016-11-23] MEDS ORDERED: Albuterol 0.083% 2.5 MG/3 ML Neb Soln NEB PRN (09:45)
[2016-11-23 14:17] VITALS: BP 123/70
[2016-11-23] MEDS ORDERED: PRAVASTATIN 80 MG PO SCH (18:00)
[2016-11-23] MEDS ORDERED: Propranolol 60 MG Cap.ER PO SCH (20:00)
[2016-11-23] MEDS ORDERED: Gabapentin 300 MG Cap PO SCH (20:00)
[2016-11-24] MEDS ORDERED: Lisinopril 10 MG Tab PO SCH (08:00)
[2016-11-24] MEDS ORDERED: Omeprazole 20 MG Cap.CR PO SCH (10:00)
--- NOTE | 2016-11-26 08:14 | DISCH ---
ADMITTING DIAGNOSES: 1. Acute on chronic lumbar back pain. 2. Global weakness. DISCHARGE DIAGNOSES: 1. Acute on chronic lumbar back pain. 2. Global weakness. DISCHARGE PROVIDER: Morales Johnson PA-C. HISTORY: The patient was admitted to our facility on observation status, with complaints of severe weakness and difficulties with ambulation. The patient did not have a fall and states that he has been experiencing the weakness and back pain over the past 2 days. He does have a history of osteoarthritis and chronic lumbar back pain. The patient was mildly dehydrated and was given normal saline with 20 of KCl over night. His back pain was treated with [place] and tramadol and he states that overall he is experiencing improvement in his back discomfort. He was followed by physical therapy. His labs and repeat chest x-ray this morning were unremarkable. The patient is not euvolemic and does not have any evidence of any electrolyte disturbances and can be discharged from observation status and a transition to self-pay swing bed. PHYSICAL EXAMINATION: General: This is a 76-year-old male patient, who in no acute distress. Vital Signs: Temperature is 36.4, pulse rate is 95, blood pressure is 123/70, respiratory rate is 20, and O2 saturations 95%. Skin: Warm, pink, and dry. HEENT: Head is normocephalic, atraumatic. Mouth, oral mucosa is moist. No erythema or exudate. No hypopharynx. Neck: Supple without masses. There is no lymphadenopathy. Lungs: Diminished in the bases, particularly on the right. Heart: Regular rate and rhythm. Abdomen: Soft and nontender. There is no hepatosplenomegaly or masses noted. Extremities: Without edema. Neurologic: He is alert and oriented answers all questions appropriately. His speech is fluent. His gait is within normal limits. No facial droop noted. No pronator drift. His Romberg is negative. Psychiatric: Affect is very flat. He is cooperative however and is not resistive to care. LABORATORY DATA: WBCs 3.9, hemoglobin is 12.1, and platelets are 105. Coag; PT is 10.4, INR is 0.9. Chemistry; sodium is 143, potassium is 3.6, chloride is 106, bicarb is 28, BUN is 14, and creatinine is 1.2. GFR is 59, glucose is 91, lactic acid is normalized at 1.3, and calcium is 8.3. DISCHARGE CONDITION: Fair. DISPOSITION: The patient will be transitioned to self-pay swing bed here at [facility]. Catherine Quiñones will resume care for this patient. DISCHARGE MEDICATIONS: Please see MAR. I will continue with current medications as he was on while he was admitted on observation status. PROBLEM LIST: 1. Acute on chronic low back pain. 2. Weakness and deconditioning. MWK: 11/23/2016 16:16:38 MODL: 11/23/2016 16:54:57 /[id number]
--- NOTE | 2016-11-26 08:14 | ER ---
Date of Service: 11/22/2016 ADDENDUM: This patient's emergency room note may be used as his admission H and P. MWK: 11/23/2016 14:41:04 MODL: 11/23/2016 20:02:35 /[id number]
== END 2016-11-23 15:35 | disposition swing bed (61) ==
LOC: VM.ED 15:44 → VM.MS 19:23
PROVIDERS: ADMIT Physician Assistant; ATTEND Physician Assistant
DX: G89.29 Other chronic pain (principal); M54.5 Low back pain; R53.1 Weakness; I10 Essential (primary) hypertension; E78.00 Pure hypercholesterolemia, unspecified; J44.9 Chronic obstructive pulmonary disease, unspecified; I71.4 Abdominal aortic aneurysm, without rupture; E53.8 Deficiency of other specified B group vitamins; G47.33 Obstructive sleep apnea (adult) (pediatric); Z79.01 Long term (current) use of anticoagulants; Z79.899 Other long term (current) drug therapy; Z88.0 Allergy status to penicillin; Z88.8 Allergy status to other drugs, medicaments and biological substances
CPT/HCPCS: 36415; 71010; 72132; 80048; 80053; 81001; 82550; 82607; 83605; 84443; 84484; 85025; 85610; 86140; 87040; 87804; 93005; 96361; 96374; 96376; 97161; 97165; 99285; A9270; G0378; G0480; J1170; J3480; J7050; Q9967; 99217; 99219

== ENCOUNTER 2016-11-23 15:27 | Inpatient (IN) | payer MEDICARE, OTHER ==
[2016-11-23] MEDS ORDERED: HYDROCODONE PO PRN (15:43)
[2016-11-23] MEDS ORDERED: Albuterol 8 GM Inhaler**OWN MED INH PRN (15:43)
[2016-11-23] MEDS ORDERED: Non-Formulary Medication 1 Each (Fluticasone Propionate [Flonase] 1 SPRAY) NASBOTH PRN (15:43)
[2016-11-23] MEDS ORDERED: ACETAMINOPHEN PO PRN (15:43)
[2016-11-23] MEDS ORDERED: Fluticasone Propionate Nasal Spray 16 GM Bottle NASBOTH PRN (15:56)
[2016-11-23] MEDS ORDERED: Albuterol 0.083% 2.5 MG/3 ML Neb Soln NEB PRN (15:56)
[2016-11-23] MEDS ORDERED: Non-Formulary Medication 1 Each (Pravastatin [Pravachol] 80 MG) PO SCH (18:00)
[2016-11-23] MEDS ORDERED: Non-Formulary Medication 1 Each (Gabapentin [Neurontin] 600 MG) PO SCH (20:00)
[2016-11-23] MEDS ORDERED: PROPRANOLOL HCL 120 MG PO SCH (20:00)
[2016-11-23] MEDS ORDERED: ROPINIROLE 0.5 MG PO SCH (20:00)
[2016-11-23] MEDS ORDERED: Non-Formulary Medication 1 Each (Budesonide/Formoterol 2 PUFF) INH SCH (20:00)
[2016-11-23] MEDS: ACETAMINOPHEN PO PRN (20:17)
[2016-11-23] MEDS: HYDROCODONE PO PRN (20:17)
[2016-11-23] MEDS: PROPRANOLOL 60 MG PO SCH (20:18)
[2016-11-23] MEDS: ROPINIROLE 0.5 MG PO SCH (20:19)
[2016-11-23] MEDS: Gabapentin 300 MG Cap**OWN MED PO SCH (20:19)
[2016-11-23] MEDS: PRAVACHOL PO SCH (20:20)
[2016-11-23] MEDS: Formoterol/Mometasone 200-5 MCG 8.8 GM Inhaler IH SCH (20:21)
[2016-11-23] MEDS: Nicotine 7 MG/24 Hr Patch TRDERM SCH (20:27)
[2016-11-24] MEDS: Formoterol/Mometasone 200-5 MCG 8.8 GM Inhaler IH SCH ×2 (06:36→19:55)
[2016-11-24] MEDS: FLUoxetine 20 MG Cap**OWN MED PO SCH (07:52)
[2016-11-24] MEDS: HYDROCHLOROTHIAZIDE 25 MG PO SCH (07:52)
[2016-11-24] MEDS: Tamsulosin 0.4 MG Cap.ER**OWN MED PO SCH (07:52)
[2016-11-24] MEDS: EZETIMIBE 10 MG PO SCH (07:53)
[2016-11-24] MEDS: BUPROPION 150 MG PO SCH (07:53)
[2016-11-24] MEDS: LISINOPRIL 20 MG PO SCH (07:53)
[2016-11-24] MEDS: Multivitamins with Iron/Calcium/Folic Acid/Minerals Tab PO SCH (07:53)
[2016-11-24] MEDS: Nicotine 7 MG/24 Hr Patch TRDERM SCH (07:53)
[2016-11-24] MEDS: Clopidogrel 75 MG Tab**OWN MED PO SCH (07:53)
[2016-11-24] MEDS: ROPINIROLE 0.5 MG PO SCH ×2 (07:55→19:56)
[2016-11-24] MEDS ORDERED: Non-Formulary Medication 1 Each (Multivitamin [Multi-Vitamin Daily] 1 TAB) PO SCH (08:00)
[2016-11-24] MEDS ORDERED: Non-Formulary Medication 1 Each (Ezetimibe [Zetia] 10 MG) PO SCH (08:00)
[2016-11-24] MEDS ORDERED: BUPROPION 150 MG PO SCH (08:00)
[2016-11-24] MEDS ORDERED: FLUOXETINE HCL 20 MG PO SCH (08:00)
[2016-11-24] MEDS ORDERED: Non-Formulary Medication 1 Each (Lisinopril [Lisinopril] 10 MG) PO SCH (08:00)
[2016-11-24] MEDS ORDERED: Non-Formulary Medication 1 Each (Hydrochlorothiazide [Hydrochlorothiazide] 25 MG) PO SCH (08:00)
[2016-11-24] MEDS ORDERED: Non-Formulary Medication 1 Each (Tamsulosin [Flomax] 0.4 MG) PO SCH (08:00)
[2016-11-24] MEDS ORDERED: PANTOPRAZOLE 20 MG PO SCH (08:00)
[2016-11-24] MEDS ORDERED: Non-Formulary Medication 1 Each (Clopidogrel [Plavix] 75 MG) PO SCH (08:00)
[2016-11-24] MEDS: Omeprazole 20 MG Cap.CR PO SCH (09:20)
[2016-11-24] MEDS: PRAVACHOL PO SCH (17:01)
[2016-11-24] MEDS: PROPRANOLOL 60 MG PO SCH (19:57)
[2016-11-24] MEDS: Gabapentin 300 MG Cap**OWN MED PO SCH (19:58)
[2016-11-24] MEDS: ACETAMINOPHEN PO PRN ×3 (21:27→23:00)
[2016-11-24] MEDS: HYDROCODONE PO PRN ×3 (21:27→23:00)
[2016-11-25] MEDS: Formoterol/Mometasone 200-5 MCG 8.8 GM Inhaler IH SCH ×2 (06:14→19:56)
[2016-11-25] MEDS: Omeprazole 20 MG Cap.CR PO SCH (06:19)
[2016-11-25] MEDS: Multivitamins with Iron/Calcium/Folic Acid/Minerals Tab PO SCH (07:21)
[2016-11-25] MEDS: Tamsulosin 0.4 MG Cap.ER**OWN MED PO SCH (07:21)
[2016-11-25] MEDS: FLUoxetine 20 MG Cap**OWN MED PO SCH (07:21)
[2016-11-25] MEDS: ROPINIROLE 0.5 MG PO SCH ×2 (07:21→19:56)
[2016-11-25] MEDS: BUPROPION 150 MG PO SCH (07:22)
[2016-11-25] MEDS: HYDROCHLOROTHIAZIDE 25 MG PO SCH (07:22)
[2016-11-25] MEDS: LISINOPRIL 20 MG PO SCH (07:22)
[2016-11-25] MEDS: EZETIMIBE 10 MG PO SCH (07:22)
[2016-11-25] MEDS: Clopidogrel 75 MG Tab**OWN MED PO SCH (07:23)
[2016-11-25] MEDS: Nicotine 7 MG/24 Hr Patch TRDERM SCH (07:25)
[2016-11-25] MEDS: PRAVACHOL PO SCH (17:13)
[2016-11-25] MEDS: PROPRANOLOL 60 MG PO SCH (19:57)
[2016-11-25] MEDS: Gabapentin 300 MG Cap**OWN MED PO SCH (19:57)
[2016-11-25] MEDS: HYDROCODONE PO PRN (22:15)
[2016-11-25] MEDS: ACETAMINOPHEN PO PRN (22:15)
[2016-11-26] MEDS: Formoterol/Mometasone 200-5 MCG 8.8 GM Inhaler IH SCH (06:07)
[2016-11-26] MEDS: Omeprazole 20 MG Cap.CR PO SCH (06:11)
[2016-11-26 06:23] VITALS: BP 130/72
[2016-11-26] MEDS: FLUoxetine 20 MG Cap**OWN MED PO SCH (08:25)
[2016-11-26] MEDS: EZETIMIBE 10 MG PO SCH (08:25)
[2016-11-26] MEDS: ROPINIROLE 0.5 MG PO SCH (08:25)
[2016-11-26] MEDS: HYDROCHLOROTHIAZIDE 25 MG PO SCH (08:25)
[2016-11-26] MEDS: Clopidogrel 75 MG Tab**OWN MED PO SCH (08:26)
[2016-11-26] MEDS: Tamsulosin 0.4 MG Cap.ER**OWN MED PO SCH (08:26)
[2016-11-26] MEDS: BUPROPION 150 MG PO SCH (08:26)
[2016-11-26] MEDS: LISINOPRIL 20 MG PO SCH (08:27)
[2016-11-26] MEDS: Multivitamins with Iron/Calcium/Folic Acid/Minerals Tab PO SCH (08:49)
[2016-11-26] MEDS: Nicotine 7 MG/24 Hr Patch TRDERM SCH (08:49)
--- NOTE | 2016-11-30 16:43 | PCM.DCSUM1 ---
Discharge Summary - Hospital Course Free Text/Narrative:: 76 year old male admitted to swing bed following observation stay for weakness. - Discharge Data Discharge Date: 11/26/16 Discharge Disposition: Home, Self-Care 01 Condition: Good - Discharge Diagnosis/Problem(s) (1) Fall at home SNOMED Code(s): 66665908 ICD Code: W19.XXXA - UNSPECIFIED FALL, INITIAL ENCOUNTER; Y92.099 - UNSP PLACE IN OTH NON-INSTITUTIONAL RESIDENCE PLACE Status: Acute Qualifiers: (2) Leg weakness, bilateral SNOMED Code(s): 1821527 ICD Code: R29.898 - [facility] SYMPTOMS AND SIGNS INVOLVING THE MUSCULOSKELETAL SYSTEM Status: Acute - Patient Summary/Data Consults: Consultations 11/23/16 15:56 Consult to Applications Sales Representative [CONS] Routine PT Evaluation and Treatment [CONS] Routine Hospital Course: 76 year old male admitted to swing bed for continued therapy following an observation stay for weakness that resulted in a fall. Pt was progressing well and requested to be discharged home urgently due to a in his family. - Patient Instructions Diet: Usual Diet as Tolerated Activity: As Tolerated Showering/Bathing: May Shower Notify Provider of: Fever, Increased Pain, Swelling and Redness, Drainage, Nausea and/or Vomiting - Discharge Plan Home Medications: Home Meds Clopidogrel [Plavix] 75 mg PO DAILY 09/05/14 [History] Gabapentin [Neurontin] 600 mg PO BEDTIME 09/05/14 [History] Multivitamin [Multi-Vitamin Daily] 1 tab PO DAILY 09/05/14 [History] Propranolol HCl [Inderal LA] 120 mg PO BEDTIME 09/05/14 [History] Albuterol [Proventil HFA] 2 puff INH Q4H PRN 06/29/15 [History] Fluticasone Propionate [Flonase] 1 spray NASBOTH DAILY PRN 06/29/15 [History] Pantoprazole 20 mg PO DAILY 06/29/15 [History] buPROPion [Wellbutrin XL] 150 mg PO DAILY 06/29/15 [History] Budesonide/Formoterol [Symbicort 160-4.5 MCG] 2 puff INH BID 05/18/16 [History] Hydrochlorothiazide 25 mg PO DAILY 08/13/16 [History] Tamsulosin [Flomax] 0.4 mg PO DAILY 08/13/16 [History] rOPINIRole [Requip] 0.5 mg PO BID 08/13/16 [History] Ezetimibe [Zetia] 10 mg PO DAILY 10/01/16 [History] FLUoxetine HCl [Prozac] 20 mg PO DAILY 10/01/16 [History] Hydrocodone/Acetaminophen [Cascilla 10-325 Tablet] 1 tab PO Q6H PRN 11/23/16 [ History] Lisinopril 10 mg PO DAILY 11/23/16 [History] Naproxen Sodium [Aleve] 220 mg PO BIDMEALS 11/23/16 [History] Nicotine [Habitrol] 7 mg TRDERM DAILY patch 11/26/16 [Rx] Patient's Own Medication [Ptom] 1 each PO 1800 each 11/26/16 [Rx] - Discharge Summary/Plan Comment DC Time >30 min.: No Discharge Summary/Plan Comment: Patient will be discharged home. Discharge medications per reconciliation. He has been asked to schedule follow up in clinic in 2 weeks or sooner if necessary. - Patient Data Vitals - Most Recent: Last Vital Signs Temp 36.3 C 11/26/16 06:00 Pulse 56 L 11/26/16 06:00 Resp 20 11/26/16 06:00 BP 130/72 11/26/16 08:27 Pulse Ox 96 11/26/16 06:00 Weight - Most Recent: 81.647 kg Med Orders - Current: Current Medications Discontinued Medications Hydrocodone Bitart/Acetaminophen (Cascilla 325-10 Mg) 1 tab PO Q4H PRN PRN Reason: Pain Last Admin: 11/25/16 22:15 Dose: 1 tab Albuterol (Ventolin Hfa) 0 gm INH Q4H PRN PRN Reason: Shortness of Breath Albuterol (Proventil Neb Soln) 2.5 mg NEB Q4HRRT PRN PRN Reason: Shortness of Breath Bupropion HCl (Wellbutrin Xl) 150 mg PO DAILY [facility] Last Admin: 11/26/16 08:26 Dose: 150 mg Clopidogrel Bisulfate (Plavix) 75 mg PO DAILY [facility] Last Admin: 11/26/16 08:26 Dose: 75 mg Ezetimibe (Zetia) 10 mg PO DAILY [facility] Last Admin: 11/26/16 08:25 Dose: 10 mg Fluoxetine HCl (Prozac) 20 mg PO DAILY [facility] Last Admin: 11/26/16 08:25 Dose: 20 mg Fluticasone Propionate (Flonase) 0 gm NASBOTH DAILY PRN PRN Reason: Rhinitis Gabapentin (Neurontin) 600 mg PO BEDTIME [facility] Last Admin: 11/25/16 19:57 Dose: 600 mg Hydrochlorothiazide (Hydrochlorothiazide) 25 mg PO DAILY [facility] Last Admin: 11/26/16 08:25 Dose: 25 mg Lisinopril (Prinivil) 10 mg PO DAILY [facility] Last Admin: 11/26/16 08:27 Dose: 10 mg Mometasone Furoate/Formoterol Fumar (Dulera 200-5 Mcg) 2 puff IH BIDRT [facility] Last Admin: 11/26/16 06:07 Dose: 2 puff Multivitamins/Minerals (Thera M Plus) 1 tab PO DAILY [facility] Last Admin: 11/26/16 08:49 Dose: 1 tab Naproxen (Naproxen Sodium) 220 mg PO BIDMEALS [facility] Last Admin: 11/26/16 08:49 Dose: 220 mg Nicotine (Habitrol) 7 mg TRDERM DAILY [facility] Last Admin: 11/26/16 08:49 Dose: 7 mg Omeprazole (Omeprazole) 20 mg PO DAILY@0700 [facility] Last Admin: 11/26/16 06:11 Dose: Not Given Patient's Own Medication 1 Each Pravachol 80 Mg 1 each PO 1800 [facility] Last Admin: 11/25/16 17:13 Dose: 1 each Propranolol HCl (Inderal La) 120 mg PO BEDTIME [facility] Last Admin: 11/25/16 19:57 Dose: 120 mg Ropinirole HCl (Requip) 0.5 mg PO BID [facility] Last Admin: 11/26/16 08:25 Dose: 0.5 mg Tamsulosin HCl (Flomax) 0.4 mg PO DAILY [facility] Last Admin: 11/26/16 08:26 Dose: 0.4 mg Tramadol HCl (Ultram) 50 mg PO Q4H PRN PRN Reason: Pain Last Admin: 11/24/16 17:03 Dose: 50 mg *Q Meaningful Use (DIS) - VTE *Q VTE Criteria *Q: - Stroke *Q Stroke Criteria *Q: - AMI *Q AMI Criteria *Q:
== END 2016-11-26 13:05 | disposition home or self-care (01) | DRG 556 ==
LOC: VM.MS 15:35
PROVIDERS: ADMIT Physician Assistant; ATTEND Family Medicine
DX: R29.898 Other symptoms and signs involving the musculoskeletal system (principal); M54.5 Low back pain; M19.90 Unspecified osteoarthritis, unspecified site; G89.29 Other chronic pain; Z79.899 Other long term (current) drug therapy
CPT/HCPCS: A9270-GY

== ENCOUNTER 2017-11-25 22:25 | Emergency (ER) | payer MEDICARE, OTHER ==
[2017-11-25] MEDS ORDERED: Sodium Chloride 0.9% 10 ML Syringe FLUSH PRN (22:42)
[2017-11-26 00:34] LABS: CHLORIDE,CL 103 mmol/L (98-107); SODIUM,NA 143 mmol/L (136-145)
[2017-11-26 00:51] VITALS: BP 128/69
[2017-11-26] MEDS ORDERED: Take Home: traMADol 50 MG, 4 Tab Pack PO ONE (01:19)
--- NOTE | 2017-11-26 02:43 | EDM.PDOC ---
ED HPI GENERAL MEDICAL PROBLEM - General Chief Complaint: General Stated Complaint: fall, shoulder and back pain Time Seen by Provider: 11/25/17 22:42 Source of Information: Reports: Patient History Limitations: Reports: No Limitations - History of Present Illness INITIAL COMMENTS - FREE TEXT/NARRATIVE: Pt. presents to ER with compaints of fall down stairs following a near syncopal episode. Pt. was riding a stair lift when he became week and fell off the chair. He struck his head and injured his neck. Pt. also complains if injury to his L knee and L upper arm. He states that he did not have any chest pain or shortness of breath prior to the fall. Location: Reports: Head, Upper Extremity, Left, Lower Extremity, Left Associated Symptoms: Reports: No Other Symptoms Lower Back Pain Score (Numeric/FACES): 4 - Related Data Allergies Allergy/AdvReac Type Severity Reaction Status Date / Time morphine Allergy Cannot Verified 11/25/17 22:35 Remember penicillin G Allergy Hives Verified 11/25/17 22:35 rosuvastatin calcium AdvReac Leg Cramps Verified 11/25/17 22:35 [From Crestor] Home Meds: Home Meds Clopidogrel [Plavix] 75 mg PO DAILY 09/05/14 [History] Gabapentin [Neurontin] 600 mg PO BEDTIME 09/05/14 [History] Multivitamin [Multi-Vitamin Daily] 1 tab PO DAILY 09/05/14 [History] Propranolol HCl [Inderal LA] 120 mg PO BEDTIME 09/05/14 [History] Albuterol [Proventil HFA] 2 puff INH Q4H PRN 06/29/15 [History] Fluticasone Propionate [Flonase] 1 spray NASBOTH DAILY PRN 06/29/15 [History] Pantoprazole 20 mg PO DAILY 06/29/15 [History] buPROPion [Wellbutrin XL] 150 mg PO DAILY 06/29/15 [History] Hydrochlorothiazide 0.5 tab PO DAILY 08/13/16 [History] Tamsulosin [Flomax] 0.4 mg PO DAILY 08/13/16 [History] rOPINIRole [Requip] 0.5 mg PO BEDTIME 08/13/16 [History] FLUoxetine HCl [Prozac] 20 mg PO DAILY 10/01/16 [History] Lisinopril 10 mg PO DAILY 11/23/16 [History] Naproxen Sodium [Aleve] 220 mg PO BIDMEALS 11/23/16 [History] Fluticasone/Salmeterol [Advair 250-50 Diskus] 1 each IH BID 11/25/17 [History] Simvastatin [Zocor] 20 mg PO DAILY 11/25/17 [History] Triamcinolone Acetonide [Triamcinolone Acetonide 0.1% Crm] 15 gm TOP BID PRN [History] Nortriptyline 25 mg PO BEDTIME 11/26/17 [History] Past Medical History HEENT History: Reports: Allergic Rhinitis, Hard of Hearing, Impaired Vision, Sinusitis Other HEENT History: chronic sinusitis, bilat hearing aids, glasses Cardiovascular History: Reports: Aneurysm, High Cholesterol, Hypertension Other Cardiovascular History: subclavian artery stonsis-left, AAA x 2 Respiratory History: Reports: COPD, Sleep Apnea Other Respiratory History: Pneumonia in June of 2015, pleural effusion, collapsed lung, chest tube Gastrointestinal History: Reports: Colon Polyp, Diverticulosis, GERD, Hemorrhoids, Irritable Bowel Syndrome Other Gastrointestinal History: abdominal aortic aneursymn x 2 Genitourinary History: Reports: Other (See Below) Other Genitourinary History: suspects enlarged prostate due to unable to start urine stream Musculoskeletal History: Reports: Arthritis, Back Pain, Chronic Other Musculoskeletal History: degenerative joint disease, restless leg syndrome , raynauds sydrome, essential tremor, weakness, hx of rib fx, right wrist fx, right hand Neurological History: Reports: CVA, Neuropathy, Peripheral Other Neuro History: near syncope Psychiatric History: Reports: Addiction, Anxiety, Depression, Emotional Problems , Suicidal Ideation Other Psychiatric History: recently lost his to cancer Endocrine/Metabolic History: Reports: None Other Endocrine/Metabolic History: vitamin B12 deficiency, impaired fasting glucose Hematologic History: Reports: B12 Deficiency Other Hematologic History: take Plavix Immunologic History: Reports: None Oncologic (Cancer) History: Reports: Other (See Below) Other Oncologic History: lipoma of buttock Dermatologic History: Reports: None - Past Surgical History Head Surgeries/Procedures: Reports: None GI Surgical History: Reports: Appendectomy, Colonoscopy, Hernia, Inguinal, Polypectomy Musculoskeletal Surgical History: Reports: Ganglion Cyst, Joint Replacement, Knee Replacement Dermatological Surgical History: Reports: None Social & Family History - Family History Family Medical History: Noncontributory Cardiac: Reports: CAD, Cardiomyopathy, High Cholesterol, Hypertension, [place] Musculoskeletal: Reports: Arthritis, Back pain, Chronic Neurological: Reports: CVA Other Neurological Family History: sister had CVA Oncologic: Reports: Leukemia Other Oncologic Family History: father of Leukemia - Tobacco Use Smoking Status *Q: Current Every Day Smoker Years of Tobacco use: 60 Packs/Tins Daily: 0.5 - Caffeine Use Caffeine Use: Reports: None ED ROS GENERAL - Review of Systems Review Of Systems: See Below Constitutional: Reports: No Symptoms HEENT: Reports: Glasses (broken during fall, caused facial laceration) Respiratory: Reports: No Symptoms Cardiovascular: Reports: No Symptoms Endocrine: Reports: No Symptoms GI/Abdominal: Reports: No Symptoms : Reports: No Symptoms Musculoskeletal: Reports: Arm Pain, Leg Pain Skin: Reports: No Symptoms Neurological: Reports: No Symptoms Psychiatric: Reports: No Symptoms Hematologic/Lymphatic: Reports: No Symptoms Immunologic: Reports: No Symptoms ED EXAM, GENERAL - Physical Exam Exam: See Below Exam Limited By: No Limitations General Appearance: Alert, WD/WN, No Apparent Distress Eye Exam: Bilateral Eye: EOMI, Normal Fundi, Normal Inspection, PERRL Ears: Normal External Exam, Normal Canal, Hearing Grossly Normal, Normal TMs Ear Exam: Bilateral Ear: Auricle Normal, Canal Normal, TM normal Nose: Normal Inspection, Normal Mucosa, No Blood Throat/Mouth: Normal Inspection, Normal Lips, Normal Teeth, Normal Gums, Normal Oropharynx, Normal Voice, No Airway Compromise Head: Other (abrasions and superficial lacerations to L temporal area. No bony deformity.) Neck: Normal Inspection, Supple, Full Range of Motion, Tender Midline Respiratory/Chest: No Respiratory Distress, Lungs Clear, Normal Breath Sounds, No Accessory Muscle Use, Chest Non-Tender Cardiovascular: Normal Peripheral Pulses, Regular Rate, Rhythm, No Edema, No Gallop, No JVD, No Murmur, No Rub GI/Abdominal: Normal Bowel Sounds, Soft, Non-Tender, No Organomegaly, No Distention, No Abnormal Bruit, No Mass (Male) Exam: Deferred Rectal (Males) Exam: Deferred Back Exam: Normal Inspection, Full Range of Motion, NT Extremities: No Pedal Edema, Normal Capillary Refill, Arm Pain, Leg Pain, Limited Range of Motion Neurological: Alert, Oriented, CN II-XII Intact, Normal Cognition, Normal Gait, Normal Reflexes, No Motor/Sensory Deficits Psychiatric: Normal Affect, Normal Mood Skin Exam: Warm, Dry, Intact, Normal Color, No Rash Lymphatic: No Adenopathy ED GENERAL MEDICAL PROCEDURES - Laceration/Wound Repair Left Lateral Forehead Lac/wound length in cm: 1 Appearance: Subcutaneous, Clean Distal NVT: Neuro & Vascular Intact Anesthetic Type: Local Local Anesthesia - Lidocaine (Xylocaine): 1% Plain Local Anesthetic Volume: 2cc Skin Prep: Chlorhexidine (Hibiciens), Saline, Sterile Drape Exploration/Debridement/Repair: Wound Explored, Minimal Debridement Closed with: Sutures Suture Size: other (6-0) # of Sutures: 2 Suture Type: Nylon EKG INTERPRETATION Rhythm: NSR [place]: Normal P-Wave: Present QRS: Normal ST-T: Normal QT: Normal Course - Vital Signs Last Recorded V/S: Last Vital Signs Temp 36.6 C 11/26/17 00:50 Pulse 75 11/26/17 00:50 Resp 18 11/26/17 00:50 BP 128/69 11/26/17 00:50 Pulse Ox 95 11/26/17 00:50 - Orders/Labs/Meds Orders: Active Orders 24 hr Category Date Time Status EKG Documentation Completion [RC] STAT Care 11/25/17 22:42 Active Cervical Spine wo Cont [CT] Stat Exams 11/25/17 22:45 Taken Chest 1V Frontal [CR] Stat Exams 11/25/17 22:43 Taken Head wo Cont [CT] Stat Exams 11/25/17 22:45 Taken Humerus Lt [CR] Stat Exams 11/25/17 22:46 Taken Knee 1V or 2V Lt [CR] Stat Exams 11/25/17 22:47 Taken CULTURE BLOOD [BC] Stat Lab 11/25/17 22:44 Received CULTURE BLOOD [BC] Stat Lab 11/25/17 23:58 Results UA W/MICROSCOPIC [URIN] Stat Lab 11/25/17 22:42 Ordered Blood Culture x2 Reflex Set [OM.PC] Stat Oth 11/25/17 22:43 Ordered Peripheral IV Insertion Adult [OM.PC] Routine Oth 11/25/17 22:43 Ordered Labs: Laboratory Tests 11/25/17 11/25/17 11/25/17 Range/Units 23:58 23:58 23:58 WBC 7.3 (4.0-10.0) x10^3/uL RBC 3.96 L (4.5-6.0) x10^6/uL Hgb 13.3 L (14.0-18.0) g/dL Hct 39.3 L (40.0-52.0) % MCV 99.2 H (78.0-93.0) fL MCH 33.6 H (26.0-32.0) pg MCHC 33.8 (32.0-36.0) g/dL RDW Coeff of Deric 14.6 (10.0-15.0) % Plt Count 171 (130-400) x10^3/uL Neut % (Auto) 75.7 (50.0-80.0) % Lymph % (Auto) 15.0 L (25.0-50.0) % [place] % (Auto) 6.4 (2.0-11.0) % Eos % (Auto) 2.5 (0.0-4.0) % Baso % (Auto) 0.4 (0.2-1.2) % PT 9.7 (9.6-11.4) SEC INR 0.9 L (2.0-3.5) Sodium 143 (136-145) mmol/L Potassium 3.7 (3.5-5.1) mmol/L Chloride 103 (98-107) mmol/L Carbon Dioxide 28 (21-32) mmol/L Anion Gap 15.7 (10-20) mmol/L BUN 22 H (7-18) mg/dL Creatinine 1.6 H (0.70-1.30) mg/dL Est Cr Clr Drug Dosing TNP Estimated GFR (MDRD) 42 Glucose 81 (74-106) mg/dL Lactic Acid (0.4-2.0) mmol/L Calcium 9.0 (8.5-10.1) mg/dL Corrected Calcium 9.16 (8.5-10.1) mg/dL Phosphorus 3.0 (2.6-4.7) mg/dL Magnesium 1.7 L (1.8-2.4) mg/dL Total Bilirubin 0.4 (0.2-1.0) mg/dL AST 18 (15-37) U/L ALT 28 (16-63) U/L Alkaline Phosphatase 70 (46-116) U/L Troponin I < 0.017 (<=0.056) ng/mL C-Reactive Protein 0.7 (<=0.9) mg/dL Total Protein 7.4 (6.4-8.2) g/dL Albumin 3.8 (3.4-5.0) g/dL Globulin 3.6 Albumin/Globulin Ratio 1.06 Ethyl Alcohol (0-3) mg/dL 11/25/17 11/25/17 Range/Units 23:58 23:58 WBC (4.0-10.0) x10^3/uL RBC (4.5-6.0) x10^6/uL Hgb (14.0-18.0) g/dL Hct (40.0-52.0) % MCV (78.0-93.0) fL MCH (26.0-32.0) pg MCHC (32.0-36.0) g/dL RDW Coeff of Deric (10.0-15.0) % Plt Count (130-400) x10^3/uL Neut % (Auto) (50.0-80.0) % Lymph % (Auto) (25.0-50.0) % [place] % (Auto) (2.0-11.0) % Eos % (Auto) (0.0-4.0) % Baso % (Auto) (0.2-1.2) % PT (9.6-11.4) SEC INR (2.0-3.5) Sodium (136-145) mmol/L Potassium (3.5-5.1) mmol/L Chloride (98-107) mmol/L Carbon Dioxide (21-32) mmol/L Anion Gap (10-20) mmol/L BUN (7-18) mg/dL Creatinine (0.70-1.30) mg/dL Est Cr Clr Drug Dosing Estimated GFR (MDRD) Glucose (74-106) mg/dL Lactic Acid 1.6 (0.4-2.0) mmol/L Calcium (8.5-10.1) mg/dL Corrected Calcium (8.5-10.1) mg/dL Phosphorus (2.6-4.7) mg/dL Magnesium (1.8-2.4) mg/dL Total Bilirubin (0.2-1.0) mg/dL AST (15-37) U/L ALT (16-63) U/L Alkaline Phosphatase (46-116) U/L Troponin I (<=0.056) ng/mL C-Reactive Protein (<=0.9) mg/dL Total Protein (6.4-8.2) g/dL Albumin (3.4-5.0) g/dL Globulin Albumin/Globulin Ratio Ethyl Alcohol 33 H (0-3) mg/dL Meds: Medications Discontinued Medications Generic Name Dose Route Start Last Admin Trade Name Freq PRN Reason Stop Dose Admin Lidocaine HCl 5 ml 11/26/17 00:54 11/26/17 00:58 Xylocaine-Mpf 1% INJECT 11/26/17 00:55 5 ml ONETIME ONE Administration Sodium Chloride 10 ml 11/25/17 22:42 Saline Flush FLUSH ASDIRECTED PRN Keep Vein Open Tramadol HCl 1 packet 11/26/17 01:19 11/26/17 01:23 Take Home: Tramadol 50 Mg, 4 Tab Pack PO 11/26/17 01:20 1 packet ONETIME ONE Administration - Radiology Interpretation Free Text/Narrative:: CT brain, c-spine, and L humerus, L knee, and chest x-rays are neg. Departure - Departure Time of Disposition: 01:25 Disposition: Home, Self-Care 01 Clinical Impression: Syncope, Closed head injury, Laceration - Discharge Information Instructions: Facial or Scalp Contusion, Contusion, Facial Laceration, Tramadol tablets Referrals: April Day, BRADDER [Primary Care Provider] - Forms: ED Department Discharge Additional Instructions: Sutures out in 10 days. Return if redness, swelling or discharge from the area. Ice the contusions/abrasions/sprains for 10-15 min every hour Tramadol 50mg every 4-6 hours as needed for pain. Drink plenty of fluids. Follow-up in clinic in 10-14 days for recheck. Return to ER if you have confusion, chest pain, shortness of breath, headache, or blurred vision. - My Orders Last 24 Hours: My Active Orders 11/25/17 22:42 EKG Documentation Completion [RC] STAT UA W/MICROSCOPIC [URIN] Stat 11/25/17 22:43 Chest 1V Frontal [CR] Stat Blood Culture x2 Reflex Set [OM.PC] Stat Peripheral IV Insertion Adult [OM.PC] Routine 11/25/17 22:44 CULTURE BLOOD [BC] Stat 11/25/17 22:45 Cervical Spine wo Cont [CT] Stat Head wo Cont [CT] Stat 11/25/17 22:46 Humerus Lt [CR] Stat 11/25/17 22:47 Knee 1V or 2V Lt [CR] Stat 11/25/17 23:58 CULTURE BLOOD [BC] Stat - Assessment/Plan Last 24 Hours: My Active Orders 11/25/17 22:42 EKG Documentation Completion [RC] STAT UA W/MICROSCOPIC [URIN] Stat 11/25/17 22:43 Chest 1V Frontal [CR] Stat Blood Culture x2 Reflex Set [OM.PC] Stat Peripheral IV Insertion Adult [OM.PC] Routine 11/25/17 22:44 CULTURE BLOOD [BC] Stat 11/25/17 22:45 Cervical Spine wo Cont [CT] Stat Head wo Cont [CT] Stat 11/25/17 22:46 Humerus Lt [CR] Stat 11/25/17 22:47 Knee 1V or 2V Lt [CR] Stat 11/25/17 23:58 CULTURE BLOOD [BC] Stat
== END 2017-11-26 01:25 | disposition home or self-care (01) ==
LOC: VM.ED 22:25
DX: R55 Syncope and collapse (principal); S01.112A Laceration without foreign body of left eyelid and periocular area, initial encounter; S01.01XA Laceration without foreign body of scalp, initial encounter; S09.90XA Unspecified injury of head, initial encounter; S00.01XA Abrasion of scalp, initial encounter; I10 Essential (primary) hypertension; J44.9 Chronic obstructive pulmonary disease, unspecified; F17.210 Nicotine dependence, cigarettes, uncomplicated; Z88.5 Allergy status to narcotic agent; Z88.0 Allergy status to penicillin; Z88.8 Allergy status to other drugs, medicaments and biological substances; Z79.899 Other long term (current) drug therapy; W07.XXXA Fall from chair, initial encounter
CPT/HCPCS: 12001; 12011; 36415; 70450; 71045; 72125; 73060-LT; 73560-LT; 80053; 83605; 83735; 84100; 84484; 85025; 85610; 86140; 87040; 93005; 93010; 99283-GF-25; 99284; A9270-GY; G0480

== ENCOUNTER 2017-12-02 19:12 | Emergency (ER) | payer MEDICARE, OTHER ==
[2017-12-02 19:33] VITALS: BP 110/49
[2017-12-02] MEDS ORDERED: Haloperidol Lactate 5 MG/ML SDV IV ONE (19:34)
[2017-12-02] MEDS ORDERED: Sodium Chloride 0.9% 1,000 ML IV ONE (19:34)
[2017-12-02] MEDS ORDERED: Sodium Chloride 0.9% 10 ML Syringe FLUSH PRN (19:34)
[2017-12-02 20:21] LABS: CHLORIDE,CL 103 mmol/L (98-107); SODIUM,NA 140 mmol/L (136-145)
--- NOTE | 2017-12-02 20:51 | EDM.PDOCBH ---
ED HPI GENERAL MEDICAL PROBLEM - General Chief Complaint: Neurological Problem Stated Complaint: hallucination Time Seen by Provider: 12/02/17 19:31 Source of Information: Reports: Patient History Limitations: Reports: No Limitations - History of Present Illness INITIAL COMMENTS - FREE TEXT/NARRATIVE: Patient is brought in by his daughter with concerns regarding a hallucination he had earlier today. Reportedly when he was sitting in his living room he saw a squirrel in the house. He decided to go outside grabbed the family cat and bring him into the house. When he arrived back into the home the squirrel was gone. This happened at approximately 1400 and he has not had any hallucinations since. He is able to tell me that he saw that and that he can clearly tell me where he is. Patient does have a long history of alcohol use. His R is also concerned that he may have an knee infection. She tells me that he had told her his left knee is swollen, red, and hot to the touch. He denies any fevers. He states today he had 1/2 a shot of whiskey. Denies chest pain, sob, confusion, headache, abdominal pain, blood to urine or stool. No other complaints and does walk with a cane. Onset: Today, Sudden Duration: Resolved Prior to Arrival Improves with: Reports: None Worsens with: Reports: None Left Knee Pain Score (Numeric/FACES): 4 - Related Data Allergies Allergy/AdvReac Type Severity Reaction Status Date / Time morphine Allergy Cannot Verified 12/02/17 19:25 Remember penicillin G Allergy Hives Verified 12/02/17 19:25 rosuvastatin calcium AdvReac Leg Cramps Verified 12/02/17 19:25 [From [facility]] Home Meds: Home Meds Clopidogrel [Plavix] 75 mg PO DAILY 09/05/14 [History] Gabapentin [Neurontin] 600 mg PO BEDTIME 09/05/14 [History] Multivitamin [Multi-Vitamin Daily] 1 tab PO DAILY 09/05/14 [History] Propranolol HCl [Inderal LA] 120 mg PO BEDTIME 09/05/14 [History] Albuterol [Proventil HFA] 2 puff INH Q4H PRN 06/29/15 [History] Fluticasone Propionate [Flonase] 1 spray NASBOTH DAILY PRN 06/29/15 [History] Pantoprazole 20 mg PO DAILY 06/29/15 [History] buPROPion [Wellbutrin XL] 150 mg PO DAILY 06/29/15 [History] Hydrochlorothiazide 0.5 tab PO DAILY 08/13/16 [History] Tamsulosin [Flomax] 0.4 mg PO DAILY 08/13/16 [History] rOPINIRole [Requip] 0.5 mg PO BEDTIME 08/13/16 [History] FLUoxetine HCl [Prozac] 20 mg PO DAILY 10/01/16 [History] Lisinopril 10 mg PO DAILY 11/23/16 [History] Naproxen Sodium [Aleve] 220 mg PO BIDMEALS 11/23/16 [History] Fluticasone/Salmeterol [Advair 250-50 Diskus] 1 each IH BID 11/25/17 [History] Simvastatin [Zocor] 20 mg PO DAILY 11/25/17 [History] Triamcinolone Acetonide [Triamcinolone Acetonide 0.1% Crm] 15 gm TOP BID PRN [History] Nortriptyline 25 mg PO BEDTIME 11/26/17 [History] traMADol [Ultram] 50 mg PO Q4H PRN 12/02/17 [History] Past Medical History HEENT History: Reports: Allergic Rhinitis, Hard of Hearing, Impaired Vision, Sinusitis Other HEENT History: chronic sinusitis, bilat hearing aids, glasses Cardiovascular History: Reports: Aneurysm, High Cholesterol, Hypertension Other Cardiovascular History: subclavian artery stonsis-left, AAA x 2 Respiratory History: Reports: COPD, Sleep Apnea Other Respiratory History: Pneumonia in June of 2015, pleural effusion, collapsed lung, chest tube Gastrointestinal History: Reports: Colon Polyp, Diverticulosis, GERD, Hemorrhoids, Irritable Bowel Syndrome Other Gastrointestinal History: abdominal aortic aneursymn x 2 Genitourinary History: Reports: Other (See Below) Other Genitourinary History: suspects enlarged prostate due to unable to start urine stream Musculoskeletal History: Reports: Arthritis, Back Pain, Chronic Other Musculoskeletal History: degenerative joint disease, restless leg syndrome , raynauds sydrome, essential tremor, weakness, hx of rib fx, right wrist fx, right hand Neurological History: Reports: CVA, Neuropathy, Peripheral Other Neuro History: near syncope Psychiatric History: Reports: Addiction, Anxiety, Depression, Emotional Problems , Suicidal Ideation Other Psychiatric History: recently lost his to cancer Endocrine/Metabolic History: Reports: None Other Endocrine/Metabolic History: vitamin B12 deficiency, impaired fasting glucose Hematologic History: Reports: B12 Deficiency Other Hematologic History: take Plavix Immunologic History: Reports: None Oncologic (Cancer) History: Reports: Other (See Below) Other Oncologic History: lipoma of buttock Dermatologic History: Reports: None - Past Surgical History Head Surgeries/Procedures: Reports: None Musculoskeletal Surgical History: Reports: Ganglion Cyst, Joint Replacement, Knee Replacement Dermatological Surgical History: Reports: None Social & Family History - Family History Family Medical History: Noncontributory Cardiac: Reports: CAD, Cardiomyopathy, High Cholesterol, Hypertension, [place] Musculoskeletal: Reports: Arthritis, Back pain, Chronic Neurological: Reports: CVA Other Neurological Family History: sister had CVA Oncologic: Reports: Leukemia Other Oncologic Family History: father of Leukemia - Tobacco Use Smoking Status *Q: Current Every Day Smoker Years of Tobacco use: 60 Packs/Tins Daily: 0.5 - Caffeine Use Caffeine Use: Reports: None ED ROS GENERAL - Review of Systems Review Of Systems: See Below Constitutional: Reports: No Symptoms HEENT: Reports: No Symptoms Respiratory: Reports: No Symptoms Cardiovascular: Reports: No Symptoms Endocrine: Reports: No Symptoms GI/Abdominal: Reports: No Symptoms : Reports: No Symptoms Musculoskeletal: Reports: No Symptoms Skin: Reports: No Symptoms Neurological: Reports: No Symptoms Psychiatric: Reports: Hallucinations Hematologic/Lymphatic: Reports: No Symptoms Immunologic: Reports: No Symptoms ED EXAM, BEHAVIORAL HEALTH - Physical Exam Exam: See Below Exam Limited By: Intoxication General Appearance: Alert, WD/WN, No Apparent Distress Eye Exam: Bilateral Eye: EOMI, Normal Inspection, PERRL Ears: Normal External Exam, Normal Canal, Hearing Grossly Normal, Normal TMs Nose: Normal Inspection, Normal Mucosa, No Blood Throat/Mouth: Normal Inspection, Normal Lips, Normal Teeth, Normal Gums, Normal Oropharynx, Normal Voice, No Airway Compromise Head: Normocephalic, Other (residual bruising from fall last week. 2 sutures removed from left islam and replaced with steri strips) Neck: Normal Inspection, Supple, Non-Tender, Full Range of Motion Respiratory/Chest: No Respiratory Distress, Lungs Clear, Normal Breath Sounds, No Accessory Muscle Use, Chest Non-Tender Cardiovascular: Normal Peripheral Pulses, Regular Rate, Rhythm, No Edema, No Gallop, No JVD, No Murmur, No Rub GI/Abdominal: Normal Bowel Sounds, Soft, Non-Tender, No Organomegaly, No Distention, No Abnormal Bruit, No Mass Back Exam: Normal Inspection, Full Range of Motion, NT Extremities: Normal Inspection, Normal Range of Motion, Non-Tender, No Pedal Edema, Normal Capillary Refill, Other (left knee does not have swelling, erythema, and is not hot to the touch) Neurological: Alert, Normal Mood/Affect, CN II-XII Intact, Normal Cognition, Normal Gait, Normal Reflexes, No Motor/Sensory Deficits, Oriented x 3 Psychiatric: Alert, Normal Affect, Normal Cognition, Normal Mood, Oriented Skin Exam: Warm, Dry, Intact, Normal color, No rash, Ecchymosis (injuries from last week's fall are in various stages of healing) COURSE, BEHAVIORAL HEALTH COMP - Course Vital Signs: Last Vital Signs Temp 36.6 C 12/02/17 19:27 Pulse 69 12/02/17 19:27 Resp 16 12/02/17 19:27 BP 110/49 L 12/02/17 19:27 Pulse Ox 97 12/02/17 19:27 Orders, Labs, Meds: Active Orders 24 hr Category Date Time Status URINALYSIS W/MICROSCOPIC [UA W/MICROSCOPIC] [URIN] Stat Lab 12/02/17 19:40 Ordered Sodium Chloride 0.9% [Saline Flush] Med 12/02/17 19:34 Ordered 10 ml FLUSH ASDIRECTED PRN Saline Lock Insert [OM.PC] Routine Oth 12/02/17 19:34 Ordered Medication Orders Sodium Chloride (Saline Flush) 10 ml FLUSH ASDIRECTED PRN PRN Reason: Keep Vein Open Laboratory Tests 12/02/17 12/02/17 12/02/17 Range/Units 19:46 19:46 19:46 WBC 6.7 (4.0-10.0) x10^3/uL RBC 3.78 L (4.5-6.0) x10^6/uL Hgb 12.4 L (14.0-18.0) g/dL Hct 37.1 L (40.0-52.0) % MCV 98.1 H (78.0-93.0) fL MCH 32.8 H (26.0-32.0) pg MCHC 33.4 (32.0-36.0) g/dL RDW Coeff of Deric 14.8 (10.0-15.0) % Plt Count 203 (130-400) x10^3/uL Neut % (Auto) 70.1 (50.0-80.0) % Lymph % (Auto) 18.6 L (25.0-50.0) % Yancey % (Auto) 8.1 (2.0-11.0) % Eos % (Auto) 2.9 (0.0-4.0) % Baso % (Auto) 0.3 (0.2-1.2) % Sodium 140 (136-145) mmol/L Potassium 4.1 (3.5-5.1) mmol/L Chloride 103 (98-107) mmol/L Carbon Dioxide 27 (21-32) mmol/L Anion Gap 14.1 (10-20) mmol/L BUN 21 H (7-18) mg/dL Creatinine 1.4 H (0.70-1.30) mg/dL Est Cr Clr Drug Dosing TNP Estimated GFR (MDRD) 49 Glucose 88 (74-106) mg/dL Lactic Acid 1.5 (0.4-2.0) mmol/L Calcium 9.2 (8.5-10.1) mg/dL Corrected Calcium 9.36 (8.5-10.1) mg/dL Total Bilirubin 0.5 (0.2-1.0) mg/dL AST 13 L (15-37) U/L ALT 24 (16-63) U/L Alkaline Phosphatase 77 (46-116) U/L C-Reactive Protein (<=0.9) mg/dL NT-Pro-B Natriuret Pep 613 H (<=450) pg/mL Total Protein 7.2 (6.4-8.2) g/dL Albumin 3.8 (3.4-5.0) g/dL Globulin 3.4 Albumin/Globulin Ratio 1.12 Urine Color (YELLOW) Urine Appearance (CLEAR) Urine pH (5.0-8.0) Ur Specific Zaleski Urine Protein (NEGATIVE) mg/dL Urine Glucose (UA) (NEGATIVE) mg/dL Urine Ketones (NEGATIVE) mg/dL Urine Occult Blood (NEGATIVE) Urine Nitrite (NEGATIVE) Urine Bilirubin (NEGATIVE) Urine Urobilinogen (0.2) EU/dL Ur Leukocyte Esterase (NEGATIVE) Urine RBC (NOT SEEN) /HPF Urine WBC (NOT SEEN) /HPF Ur Squamous Epith Cells (NEGATIVE) /HPF Urine Bacteria (NEGATIVE) /HPF Urine Mucus (NEGATIVE) /LPF Ethyl Alcohol 49 H (0-3) mg/dL 12/02/17 12/02/17 Range/Units 19:46 20:20 WBC (4.0-10.0) x10^3/uL RBC (4.5-6.0) x10^6/uL Hgb (14.0-18.0) g/dL Hct (40.0-52.0) % MCV (78.0-93.0) fL MCH (26.0-32.0) pg MCHC (32.0-36.0) g/dL RDW Coeff of Deric (10.0-15.0) % Plt Count (130-400) x10^3/uL Neut % (Auto) (50.0-80.0) % Lymph % (Auto) (25.0-50.0) % Yancey % (Auto) (2.0-11.0) % Eos % (Auto) (0.0-4.0) % Baso % (Auto) (0.2-1.2) % Sodium (136-145) mmol/L Potassium (3.5-5.1) mmol/L Chloride (98-107) mmol/L Carbon Dioxide (21-32) mmol/L Anion Gap (10-20) mmol/L BUN (7-18) mg/dL Creatinine (0.70-1.30) mg/dL Est Cr Clr Drug Dosing Estimated GFR (MDRD) Glucose (74-106) mg/dL Lactic Acid (0.4-2.0) mmol/L Calcium (8.5-10.1) mg/dL Corrected Calcium (8.5-10.1) mg/dL Total Bilirubin (0.2-1.0) mg/dL AST (15-37) U/L ALT (16-63) U/L Alkaline Phosphatase (46-116) U/L C-Reactive Protein 2.5 H (<=0.9) mg/dL NT-Pro-B Natriuret Pep (<=450) pg/mL Total Protein (6.4-8.2) g/dL Albumin (3.4-5.0) g/dL Globulin Albumin/Globulin Ratio Urine Color Dark yellow H (YELLOW) Urine Appearance Clear (CLEAR) Urine pH 6.5 (5.0-8.0) Ur Specific Zaleski 1.015 Urine Protein Negative (NEGATIVE) mg/dL Urine Glucose (UA) Negative (NEGATIVE) mg/dL Urine Ketones Negative (NEGATIVE) mg/dL Urine Occult Blood Negative (NEGATIVE) Urine Nitrite Negative (NEGATIVE) Urine Bilirubin Negative (NEGATIVE) Urine Urobilinogen 0.2 (0.2) EU/dL Ur Leukocyte Esterase Negative (NEGATIVE) Urine RBC Not seen (NOT SEEN) /HPF Urine WBC Not seen (NOT SEEN) /HPF Ur Squamous Epith Cells Rare (NEGATIVE) /HPF Urine Bacteria Rare (NEGATIVE) /HPF Urine Mucus Not seen (NEGATIVE) /LPF Ethyl Alcohol (0-3) mg/dL Medications Generic Name Dose Route Start Last Admin Trade Name Freq PRN Reason Stop Dose Admin Sodium Chloride 10 ml 12/02/17 19:34 Saline Flush FLUSH ASDIRECTED PRN Keep Vein Open Discontinued Medications Generic Name Dose Route Start Last Admin Trade Name Freq PRN Reason Stop Dose Admin Haloperidol Lactate 1 mg 12/02/17 19:34 12/02/17 19:53 Haldol IV 12/02/17 19:35 1 mg ONETIME ONE Administration Sodium Chloride 1,000 mls @ 999 mls/hr 12/02/17 19:34 12/02/17 19:52 Normal Saline IV 12/02/17 20:34 999 mls/hr ONETIME ONE Administration Departure - Departure Time of Disposition: 20:55 Disposition: Home, Self-Care 01 Condition: Good Clinical Impression: Alcoholic intoxication, Hallucinations due to alcohol - Discharge Information Instructions: Alcohol Use Disorder, Alcohol Withdrawal, [id number] Additional Instructions: Your blood did show levels of alcohol in your system. All other testing is negative for any acute cause. With penitentiary alcohol abuse, hallucinations can present themselves. I would recommend treatment for your alcohol dependence. Follow up in the clinic in 1 week or sooner to address any similar symptoms. Please call with any questions or concerns. - Problem List & Annotations (1) Alcohol abuse SNOMED Code(s): 56267310 Code(s): F10.10 - ALCOHOL ABUSE, UNCOMPLICATED Status: Chronic Priority: Medium (2) Hallucinations due to alcohol SNOMED Code(s): 4870995 Code(s): F10.951 - ALCOHOL USE, UNSP W ALCOH-INDUCE PSYCH DISORDER W HALLUCIN Status: Acute Priority: Medium - Problem List Review Problem List Initiated/Reviewed/Updated: Yes - My Orders Last 24 Hours: My Active Orders 12/02/17 19:34 Sodium Chloride 0.9% [Saline Flush] 10 ml FLUSH ASDIRECTED PRN Saline Lock Insert [OM.PC] Routine 12/02/17 19:40 URINALYSIS W/MICROSCOPIC [UA W/MICROSCOPIC] [URIN] Stat - Assessment/Plan Last 24 Hours: My Active Orders 12/02/17 19:34 Sodium Chloride 0.9% [Saline Flush] 10 ml FLUSH ASDIRECTED PRN Saline Lock Insert [OM.PC] Routine 12/02/17 19:40 URINALYSIS W/MICROSCOPIC [UA W/MICROSCOPIC] [URIN] Stat Assessment:: 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 All other testing is negative for any acute cause. 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 I would recommend treatment for your alcohol dependence. Follow up in the clinic in 1 week or sooner to address any similar symptoms. Please call with any questions or concerns.
== END 2017-12-02 20:54 | disposition home or self-care (01) ==
LOC: VM.ED 19:12
DX: F10.951 Alcohol use, unspecified with alcohol-induced psychotic disorder with hallucinations (principal); Y90.2 Blood alcohol level of 40-59 mg/100 ml; F17.210 Nicotine dependence, cigarettes, uncomplicated; I10 Essential (primary) hypertension; E78.00 Pure hypercholesterolemia, unspecified; J44.9 Chronic obstructive pulmonary disease, unspecified; F41.9 Anxiety disorder, unspecified; F32.9 Major depressive disorder, single episode, unspecified; Z79.899 Other long term (current) drug therapy; Z88.5 Allergy status to narcotic agent; Z88.0 Allergy status to penicillin; Z88.8 Allergy status to other drugs, medicaments and biological substances
CPT/HCPCS: 80053; 81001; 83605; 83880; 85025; 86140; 96361; 96374; 99283-GF; 99285; G0480; J1630; J7030

== ENCOUNTER 2018-03-24 14:56 | Emergency (ER) | payer MEDICARE, OTHER ==
[2018-03-24] MEDS ORDERED: Ondansetron 4 MG/2 ML SDV IVPUSH ONE (15:00)
[2018-03-24] MEDS ORDERED: Sodium Chloride 0.9% 10 ML Syringe FLUSH PRN (15:00)
[2018-03-24] MEDS ORDERED: Morphine 2 MG/ML Syringe IVPUSH ONE (15:01)
[2018-03-24] MEDS ORDERED: HYDROmorphone 1 MG/ML Syringe IVPUSH ONE (15:06)
--- NOTE | 2018-03-24 15:06 | EDM.PDOC ---
ED HPI GENERAL MEDICAL PROBLEM - General Chief Complaint: Cardiovascular Problem Stated Complaint: Chest Pain; SOB Time Seen by Provider: 03/24/18 14:58 Source of Information: Reports: Patient, EMS, EMS Notes Reviewed, Family, RN, RN Notes Reviewed History Limitations: Reports: No Limitations - History of Present Illness INITIAL COMMENTS - FREE TEXT/NARRATIVE: Patient is brought to the ED at [facility] via EMS for acute onset of chest pain and worsening chronic SOB. Patient states his chest pain is right lower lateral rib pain. He states it hurts to take in a deep breath. He states he has a chronic cough from COPD. He recently underwent a Triple A repair last Saturday. He state he really has not felt good since the surgery. He denies any focal neurological deficits or changes. He has abdominal pain since the surgery last week. He feels some nausea. No vomiting or diarrhea. 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 Right Thoracic Pain Score (Numeric/FACES): 7 - Related Data Allergies Allergy/AdvReac Type Severity Reaction Status Date / Time penicillin G Allergy Hives Verified 03/24/18 15:46 rosuvastatin calcium AdvReac Leg Cramps Verified 03/24/18 15:46 [From Crestor] Home Meds: Home Meds Clopidogrel [Plavix] 75 mg PO DAILY 09/05/14 [History] Gabapentin [Neurontin] 600 mg PO BEDTIME 09/05/14 [History] Multivitamin [Multi-Vitamin Daily] 1 tab PO DAILY 09/05/14 [History] Propranolol HCl [Inderal LA] 120 mg PO BEDTIME 09/05/14 [History] Albuterol [Proventil HFA] 2 puff INH Q4H PRN 06/29/15 [History] Fluticasone Propionate [Flonase] 1 spray NASBOTH DAILY PRN 06/29/15 [History] Pantoprazole 20 mg PO DAILY 06/29/15 [History] buPROPion [Wellbutrin XL] 150 mg PO DAILY 12/16/15 [History] Hydrochlorothiazide 0.5 tab PO DAILY 08/13/16 [History] Tamsulosin [Flomax] 0.4 mg PO DAILY 08/13/16 [History] rOPINIRole [Requip] 0.5 mg PO BEDTIME 08/13/16 [History] FLUoxetine HCl [Prozac] 20 mg PO DAILY 10/01/16 [History] Lisinopril 10 mg PO DAILY 11/23/16 [History] Naproxen Sodium [Aleve] 220 mg PO BIDMEALS 11/23/16 [History] Fluticasone/Salmeterol [Advair 250-50 Diskus] 1 each IH BID 11/25/17 [History] Simvastatin [Zocor] 20 mg PO DAILY 11/25/17 [History] Triamcinolone Acetonide [Triamcinolone Acetonide 0.1% Crm] 15 gm TOP BID PRN [History] Nortriptyline 25 mg PO BEDTIME 11/26/17 [History] traMADol [Ultram] 50 mg PO Q4H PRN 12/02/17 [History] Past Medical History HEENT History: Reports: Allergic Rhinitis, Hard of Hearing, Impaired Vision, Sinusitis Other HEENT History: chronic sinusitis, bilat hearing aids, glasses Cardiovascular History: Reports: Aneurysm, High Cholesterol, Hypertension Other Cardiovascular History: subclavian artery stonsis-left, AAA x 2 Respiratory History: Reports: COPD, Sleep Apnea Other Respiratory History: Pneumonia in June of 2015, pleural effusion, collapsed lung, chest tube Gastrointestinal History: Reports: Colon Polyp, Diverticulosis, GERD, Hemorrhoids, Irritable Bowel Syndrome Other Gastrointestinal History: abdominal aortic aneursymn x 2 Genitourinary History: Reports: Other (See Below) Other Genitourinary History: suspects enlarged prostate due to unable to start urine stream Musculoskeletal History: Reports: Arthritis, Back Pain, Chronic Other Musculoskeletal History: degenerative joint disease, restless leg syndrome , raynauds sydrome, essential tremor, weakness, hx of rib fx, right wrist fx, right hand Neurological History: Reports: CVA, Neuropathy, Peripheral Other Neuro History: near syncope Psychiatric History: Reports: Addiction, Anxiety, Depression, Emotional Problems , Suicidal Ideation Other Psychiatric History: recently lost his to cancer Endocrine/Metabolic History: Reports: None Other Endocrine/Metabolic History: vitamin B12 deficiency, impaired fasting glucose Hematologic History: Reports: B12 Deficiency Other Hematologic History: take Plavix Immunologic History: Reports: None Oncologic (Cancer) History: Reports: Other (See Below) Other Oncologic History: lipoma of buttock Dermatologic History: Reports: None - Past Surgical History Head Surgeries/Procedures: Reports: None Musculoskeletal Surgical History: Reports: Ganglion Cyst, Joint Replacement, Knee Replacement Dermatological Surgical History: Reports: None Social & Family History - Family History Family Medical History: Noncontributory Cardiac: Reports: CAD, Cardiomyopathy, High Cholesterol, Hypertension, [place] Musculoskeletal: Reports: Arthritis, Back pain, Chronic Neurological: Reports: CVA Other Neurological Family History: sister had CVA Oncologic: Reports: Leukemia Other Oncologic Family History: father of Leukemia - Caffeine Use Caffeine Use: Reports: None ED ROS GENERAL - Review of Systems Review Of Systems: See Below Constitutional: Reports: Weakness (since surgery last week). Denies: Fever, Chills Respiratory: Reports: Shortness of Breath, Cough, Sputum. Denies: Wheezing Cardiovascular: Reports: Chest Pain. Denies: Dyspnea on Exertion, Palpitations GI/Abdominal: Reports: Abdominal Pain, Nausea. Denies: Diarrhea, Vomiting Skin: Reports: No Symptoms Neurological: Reports: No Symptoms ED EXAM, GENERAL - Physical Exam Exam: See Below Exam Limited By: No Limitations General Appearance: Alert, No Apparent Distress Respiratory/Chest: No Respiratory Distress, Decreased Breath Sounds, Rhonchi Cardiovascular: Normal Peripheral Pulses, Regular Rate, Rhythm, No Edema Peripheral Pulses: 2+: Radial (L), Radial (R) GI/Abdominal: Soft, Tender (bilateral groins around incision sites), Abnormal Bowel Sounds (Hypoactive) Neurological: Alert, Oriented Skin Exam: Warm, Dry, Intact, Normal Color, Wound/Incision (bilateral groin incision intact; no evidence of infection; no drainage; tender to deep palpation ) EKG INTERPRETATION EKG Date: 03/24/18 Time: 15:23 Rhythm: NSR Rate (Beats/Min): 96 [place]: LAD-Left [place] Deviation P-Wave: Present QRS: Normal ST-T: Normal QT: Normal [place]/PQ Interval: 0.17 EKG Interpretation Comments: 1. Sinus Rhythm 2. Marked left axis deviation Course - Vital Signs Last Recorded V/S: Last Vital Signs Temp 37.2 C 03/24/18 15:00 Pulse 84 03/24/18 17:10 Resp 20 03/24/18 17:10 BP 127/78 03/24/18 17:10 Pulse Ox 94 L 03/24/18 17:21 - Orders/Labs/Meds Orders: Active Orders 24 hr Category Date Time Status EKG 12 Lead [EKG Documentation Completion] [RC] STAT Care 03/24/18 15:00 Active Chest Abdomen Pelvis w Cont [CT] Stat Exams 03/24/18 15:02 Taken CULTURE BLOOD [BC] Stat Lab 03/24/18 15:13 Received CULTURE BLOOD [BC] Stat Lab 03/24/18 15:17 Received Sodium Chloride 0.9% [Saline Flush] Med 03/24/18 15:00 Active 10 ml FLUSH ASDIRECTED PRN Blood Culture x2 Reflex Set [OM.PC] Stat Oth 03/24/18 14:58 Ordered Peripheral IV Insertion Adult [OM.PC] Routine Oth 03/24/18 15:00 Ordered Medication Orders Sodium Chloride (Saline Flush) 10 ml FLUSH ASDIRECTED PRN PRN Reason: Keep Vein Open Labs: Laboratory Tests 03/24/18 03/24/18 03/24/18 Range/Units 15:13 15:13 15:13 WBC 6.6 (4.0-10.0) x10^3/uL RBC 3.17 L (4.5-6.0) x10^6/uL Hgb 10.4 L D (14.0-18.0) g/dL Hct 30.3 L (40.0-52.0) % MCV 95.6 H (78.0-93.0) fL MCH 32.8 H (26.0-32.0) pg MCHC 34.3 (32.0-36.0) g/dL RDW Coeff of Deric 13.9 (10.0-15.0) % Plt Count 212 (130-400) x10^3/uL Neut % (Auto) 82.2 H (50.0-80.0) % Lymph % (Auto) 8.6 L (25.0-50.0) % [place] % (Auto) 6.8 (2.0-11.0) % Eos % (Auto) 2.1 (0.0-4.0) % Baso % (Auto) 0.3 (0.2-1.2) % PT (9.6-11.4) SEC INR (2.0-3.5) D-Dimer, Quantitative (<=0.58) mg/LFEU Sodium 141 (136-145) mmol/L Potassium 3.1 L (3.5-5.1) mmol/L Chloride 106 (98-107) mmol/L Carbon Dioxide 24 (21-32) mmol/L Anion Gap 14.1 (10-20) mmol/L BUN 23 H (7-18) mg/dL Creatinine 1.6 H (0.70-1.30) mg/dL Est Cr Clr Drug Dosing TNP Estimated GFR (MDRD) 42 Glucose 168 H (74-106) mg/dL Lactic Acid 1.7 (0.4-2.0) mmol/L Calcium 8.5 (8.5-10.1) mg/dL Corrected Calcium 9.62 (8.5-10.1) mg/dL Total Bilirubin 0.6 (0.2-1.0) mg/dL AST 15 (15-37) U/L ALT 20 (16-63) U/L Alkaline Phosphatase 84 (46-116) U/L Creatine Kinase 32 L (39-308) U/L Troponin I < 0.017 (<=0.056) ng/mL C-Reactive Protein 28.9 H (<=0.9) mg/dL Total Protein 7.4 (6.4-8.2) g/dL Albumin 2.6 L (3.4-5.0) g/dL Globulin 4.8 Albumin/Globulin Ratio 0.54 Ethyl Alcohol (0-3) mg/dL 03/24/18 03/24/18 Range/Units 15:13 15:13 WBC (4.0-10.0) x10^3/uL RBC (4.5-6.0) x10^6/uL Hgb (14.0-18.0) g/dL Hct (40.0-52.0) % MCV (78.0-93.0) fL MCH (26.0-32.0) pg MCHC (32.0-36.0) g/dL RDW Coeff of Deric (10.0-15.0) % Plt Count (130-400) x10^3/uL Neut % (Auto) (50.0-80.0) % Lymph % (Auto) (25.0-50.0) % [place] % (Auto) (2.0-11.0) % Eos % (Auto) (0.0-4.0) % Baso % (Auto) (0.2-1.2) % PT 10.4 (9.6-11.4) SEC INR 1.0 L (2.0-3.5) D-Dimer, Quantitative 3.27 H (<=0.58) mg/LFEU Sodium (136-145) mmol/L Potassium (3.5-5.1) mmol/L Chloride (98-107) mmol/L Carbon Dioxide (21-32) mmol/L Anion Gap (10-20) mmol/L BUN (7-18) mg/dL Creatinine (0.70-1.30) mg/dL Est Cr Clr Drug Dosing Estimated GFR (MDRD) Glucose (74-106) mg/dL Lactic Acid (0.4-2.0) mmol/L Calcium (8.5-10.1) mg/dL Corrected Calcium (8.5-10.1) mg/dL Total Bilirubin (0.2-1.0) mg/dL AST (15-37) U/L ALT (16-63) U/L Alkaline Phosphatase (46-116) U/L Creatine Kinase (39-308) U/L Troponin I (<=0.056) ng/mL C-Reactive Protein (<=0.9) mg/dL Total Protein (6.4-8.2) g/dL Albumin (3.4-5.0) g/dL Globulin Albumin/Globulin Ratio Ethyl Alcohol < 3 (0-3) mg/dL Meds: Medications Generic Name Dose Route Start Last Admin Trade Name Freq PRN Reason Stop Dose Admin Sodium Chloride 10 ml 03/24/18 15:00 Saline Flush FLUSH ASDIRECTED PRN Keep Vein Open Discontinued Medications Generic Name Dose Route Start Last Admin Trade Name Freq PRN Reason Stop Dose Admin Fentanyl 50 mcg 03/24/18 17:05 03/24/18 17:16 Sublimaze IVPUSH 03/24/18 17:06 50 mcg ONETIME ONE Administration Hydromorphone HCl 1 mg 03/24/18 15:06 03/24/18 15:28 Dilaudid IVPUSH 03/24/18 15:07 1 mg ONETIME ONE Administration Iopamidol 100 ml 03/24/18 15:52 03/24/18 16:48 Isovue-300 (61%) IVPUSH 03/24/18 15:53 100 ml ONETIME ONE Administration Morphine Sulfate 2 mg 03/24/18 15:01 03/24/18 17:17 Morphine IVPUSH 03/24/18 15:02 Not Given ONETIME ONE Ondansetron HCl 4 mg 03/24/18 15:00 03/24/18 15:30 Zofran IVPUSH 03/24/18 15:01 4 mg ONETIME ONE Administration - Radiology Interpretation Free Text/Narrative:: Changes in the chest suggesting cardiogenic fluid retention superimposed on changes of COPD; fusiform infrarenal abdominal aortic aneurysm s/p endograft repair. Aneurysm sac has slightly enlarged in size compared to examination from 2014, which was prior to the repair; endograft remains widely patient, however there is a hyperdense material ajacent to the stent, suggesting endoleak See scanned report in EMR CT Results Date: 03/24/18 CT Results Time: 17:24 Departure - Departure Time of Disposition: 18:17 Disposition: DC/Tfer to Acute Hospital 02 Reason for Transfer *Q: Other Condition: Fair Clinical Impression: Shortness of breath, Hypoxia, Chest pain in adult Forms: Interfacility Transfer [facility] ED Communication - ED Communication Date/Time Date: 03/24/18 Time Called: 17:57 - Discussed Case With (1) Discussed Case With (1): Admitting Provider (Dr. Dubon, Hospitalist [facility]) - Conversation Summary Admitting Provider Agreed to Patient's Admission: Yes Patient Aware of Amendments fo Care Plan: Yes - Problem List Review Problem List Initiated/Reviewed/Updated: Yes - My Orders Last 24 Hours: My Active Orders 03/24/18 14:58 Blood Culture x2 Reflex Set [OM.PC] Stat 03/24/18 15:00 EKG 12 Lead [EKG Documentation Completion] [RC] STAT Sodium Chloride 0.9% [Saline Flush] 10 ml FLUSH ASDIRECTED PRN Peripheral IV Insertion Adult [OM.PC] Routine 03/24/18 15:02 Chest Abdomen Pelvis w Cont [CT] Stat 03/24/18 15:13 CULTURE BLOOD [BC] Stat 03/24/18 15:17 CULTURE BLOOD [BC] Stat - Assessment/Plan Last 24 Hours: My Active Orders 03/24/18 14:58 Blood Culture x2 Reflex Set [OM.PC] Stat 03/24/18 15:00 EKG 12 Lead [EKG Documentation Completion] [RC] STAT Sodium Chloride 0.9% [Saline Flush] 10 ml FLUSH ASDIRECTED PRN Peripheral IV Insertion Adult [OM.PC] Routine 03/24/18 15:02 Chest Abdomen Pelvis w Cont [CT] Stat 03/24/18 15:13 CULTURE BLOOD [BC] Stat 03/24/18 15:17 CULTURE BLOOD [BC] Stat Assessment:: SOB Chest Pain, non-cardiac S/P Endovascular repair Plan: Case discussed with Dr. Dubon, Hospitalist [facility]. Patient accepted in transfer. Patient will be sent via ALS. No ASA or Heparin given recent Endovascular repair. Patient agree with POC and wishes to proceed.
[2018-03-24 15:48] LABS: CHLORIDE,CL 106 mmol/L (98-107); SODIUM,NA 141 mmol/L (136-145)
[2018-03-24 15:51] LABS: ANION GAP 14.1 mmol/L (10-20)
[2018-03-24] MEDS ORDERED: Iopamidol 612 MG/ML 100 ML Bottle IVPUSH ONE (15:52)
[2018-03-24] MEDS ORDERED: fentaNYL 100 MCG/2 ML SDV IVPUSH ONE (17:05)
[2018-03-24 18:21] VITALS: BP 125/67
== END 2018-03-24 19:00 | disposition short-term general hospital (02) ==
LOC: VM.ED 14:56
DX: R07.9 Chest pain, unspecified (principal); R06.02 Shortness of breath; R09.02 Hypoxemia; J44.9 Chronic obstructive pulmonary disease, unspecified; I10 Essential (primary) hypertension; E78.00 Pure hypercholesterolemia, unspecified; Z79.899 Other long term (current) drug therapy; Z88.0 Allergy status to penicillin; Z79.01 Long term (current) use of anticoagulants; Z95.828 Presence of other vascular implants and grafts; Z87.891 Personal history of nicotine dependence
CPT/HCPCS: 36415; 36600; 71260; 74177; 80053; 82550; 82803; 83605; 84484; 85025; 85379; 85610; 86140; 87040; 93005; 96374; 96375; 99285; G0480; J1170; J2405; J3010; Q9967

== ENCOUNTER 2018-10-18 15:30 | Observation (INO) | payer MEDICARE, OTHER ==
[2018-10-18] MEDS ORDERED: Sodium Chloride 0.9% 10 ML Syringe FLUSH PRN (15:49)
[2018-10-18] MEDS ORDERED: Ketorolac 15 MG/ML SDV IVPUSH ONE ×2 (15:53→17:13)
[2018-10-18] MEDS ORDERED: Ondansetron 4 MG/2 ML SDV IVPUSH ONE (15:54)
--- NOTE | 2018-10-18 16:24 | EDM.PDOC ---
ED HPI GENERAL MEDICAL PROBLEM - General Chief Complaint: General Stated Complaint: abdominal pain Time Seen by Provider: 10/18/18 16:00 Source of Information: Reports: Patient History Limitations: Reports: No Limitations - History of Present Illness INITIAL COMMENTS - FREE TEXT/NARRATIVE: Patient presents emergency Department with severe abdominal pain via ems. Patient states the pain started approximately one hour ago. He states sharpshooting tearing sensation in the lower abdomen. Patient denies any nausea , vomiting, chest pain, and shortness of breath. Patient does have a history of an aortic and lower abdominal aneurysm in the past with surgical intervention last intervention/repair June 2018. Quality: Reports: Sharp, Stabbing, Throbbing Severity: Severe Improves with: Reports: None Worsens with: Reports: None Associated Symptoms: Reports: No Other Symptoms Lower Abdomen Pain Score (Numeric/FACES): 10 - Related Data Allergies Allergy/AdvReac Type Severity Reaction Status Date / Time penicillin G Allergy Hives Verified 10/18/18 16:19 rosuvastatin calcium AdvReac Leg Cramps Verified 10/18/18 16:19 [From [facility]] Home Meds: Home Meds Clopidogrel [Plavix] 75 mg PO DAILY 09/05/14 [History] Gabapentin [Neurontin] 600 mg PO BEDTIME 09/05/14 [History] Multivitamin [Multi-Vitamin Daily] 1 tab PO DAILY 09/05/14 [History] Propranolol HCl [Inderal LA] 120 mg PO BEDTIME 09/05/14 [History] Albuterol [Proventil HFA] 2 puff INH Q4H PRN 06/29/15 [History] Fluticasone Propionate [Flonase] 1 spray NASBOTH DAILY PRN 06/29/15 [History] Pantoprazole 20 mg PO DAILY 06/29/15 [History] buPROPion [Wellbutrin XL] 150 mg PO DAILY 06/29/15 [History] Hydrochlorothiazide 0.5 tab PO DAILY 08/13/16 [History] Tamsulosin [Flomax] 0.4 mg PO DAILY 08/13/16 [History] rOPINIRole [Requip] 0.5 mg PO BEDTIME 08/13/16 [History] FLUoxetine HCl [Prozac] 20 mg PO DAILY 10/01/16 [History] Lisinopril 10 mg PO DAILY 11/23/16 [History] Naproxen Sodium [Aleve] 220 mg PO BIDMEALS 11/23/16 [History] Fluticasone/Salmeterol [Advair 250-50 Diskus] 1 each IH BID 11/25/17 [History] Simvastatin [Zocor] 20 mg PO DAILY 11/25/17 [History] Triamcinolone Acetonide [Triamcinolone Acetonide 0.1% Crm] 15 gm TOP BID PRN [History] Nortriptyline 25 mg PO BEDTIME 11/26/17 [History] Acetaminophen [Tylenol] 3 tab PO Q8H PRN MDD 4000 05/16/18 [History] Past Medical History HEENT History: Reports: Allergic Rhinitis, Hard of Hearing, Impaired Vision, Sinusitis Other HEENT History: chronic sinusitis, bilat hearing aids, glasses Cardiovascular History: Reports: Aneurysm, High Cholesterol, Hypertension Other Cardiovascular History: subclavian artery stonsis-left, AAA x 2 Respiratory History: Reports: COPD, Sleep Apnea Other Respiratory History: Pneumonia in June of 2015, pleural effusion, collapsed lung, chest tube Gastrointestinal History: Reports: Colon Polyp, Diverticulosis, GERD, Hemorrhoids, Irritable Bowel Syndrome Other Gastrointestinal History: abdominal aortic aneursymn x 2 Genitourinary History: Reports: Other (See Below) Other Genitourinary History: suspects enlarged prostate due to unable to start urine stream Musculoskeletal History: Reports: Arthritis, Back Pain, Chronic Other Musculoskeletal History: degenerative joint disease, restless leg syndrome , raynauds sydrome, essential tremor, weakness, hx of rib fx, right wrist fx, right hand Neurological History: Reports: CVA, Neuropathy, Peripheral Other Neuro History: near syncope Psychiatric History: Reports: Addiction, Anxiety, Depression, Emotional Problems , Suicidal Ideation Other Psychiatric History: recently lost his to cancer Endocrine/Metabolic History: Reports: None Other Endocrine/Metabolic History: vitamin B12 deficiency, impaired fasting glucose Hematologic History: Reports: B12 Deficiency Other Hematologic History: take Plavix Immunologic History: Reports: None Oncologic (Cancer) History: Reports: Other (See Below) Other Oncologic History: lipoma of buttock Dermatologic History: Reports: None - Past Surgical History Head Surgeries/Procedures: Reports: None Musculoskeletal Surgical History: Reports: Ganglion Cyst, Joint Replacement, Knee Replacement Dermatological Surgical History: Reports: None Social & Family History - Family History Family Medical History: Noncontributory Cardiac: Reports: CAD, Cardiomyopathy, High Cholesterol, Hypertension, [place] Musculoskeletal: Reports: Arthritis, Back pain, Chronic Neurological: Reports: CVA Other Neurological Family History: sister had CVA Oncologic: Reports: Leukemia Other Oncologic Family History: father of Leukemia - Caffeine Use Caffeine Use: Reports: None ED ROS GENERAL - Review of Systems Review Of Systems: See Below Constitutional: Reports: No Symptoms HEENT: Reports: No Symptoms Respiratory: Reports: No Symptoms Cardiovascular: Reports: No Symptoms Endocrine: Reports: No Symptoms GI/Abdominal: Reports: Abdominal Pain : Reports: No Symptoms Musculoskeletal: Reports: No Symptoms Skin: Reports: No Symptoms Neurological: Reports: No Symptoms Psychiatric: Reports: No Symptoms Hematologic/Lymphatic: Reports: No Symptoms ED EXAM, GENERAL - Physical Exam Exam: See Below Exam Limited By: No Limitations General Appearance: Alert, Severe Distress Respiratory/Chest: No Respiratory Distress, Lungs Clear, Normal Breath Sounds, No Accessory Muscle Use, Chest Non-Tender Cardiovascular: Normal Peripheral Pulses, Regular Rate, Rhythm, No Edema Peripheral Pulses: 2+: Radial (L), Radial (R), Dorsalis Pedis (L), Dorsalis Pedis (R) GI/Abdominal: Guarding, Tender, Abnormal Bowel Sounds Extremities: Normal Inspection, Normal Range of Motion, Non-Tender, Normal Capillary Refill Neurological: Alert, Oriented, CN II-XII Intact Psychiatric: Normal Affect, Normal Mood Skin Exam: Warm, Dry, Intact Course - Vital Signs Last Recorded V/S: Last Vital Signs Temp 36.4 C 10/18/18 15:30 Pulse 79 10/18/18 15:30 Resp 16 10/18/18 15:30 BP 123/68 10/18/18 15:30 Pulse Ox 97 10/18/18 15:30 - Orders/Labs/Meds Orders: Active Orders 24 hr Category Date Time Status Admission Status [Patient Status] [ADT] Routine ADT 10/18/18 17:14 Ordered UA RFX DOROTHY AND CULT IF INDIC [URIN] Stat Lab 10/18/18 17:02 Ordered Sodium Chloride 0.9% [Normal Saline] 1,000 ml Med 10/18/18 16:28 Active IV ONETIME Sodium Chloride 0.9% [Saline Flush] Med 10/18/18 15:49 Active 10 ml FLUSH ASDIRECTED PRN Saline Lock Insert [OM.PC] Routine Oth 10/18/18 15:49 Ordered Medication Orders Sodium Chloride (Normal Saline) 1,000 mls @ 1,000 mls/hr IV ONETIME ONE Stop: 10/18/18 17:27 Last Admin: 10/18/18 16:45 Dose: 1,000 mls/hr Sodium Chloride (Saline Flush) 10 ml FLUSH ASDIRECTED PRN PRN Reason: Keep Vein Open Labs: Laboratory Tests 10/18/18 10/18/18 Range/Units 16:21 16:21 WBC 12.0 H (4.0-10.0) x10^3/uL RBC 4.27 L (4.5-6.0) x10^6/uL Hgb 12.2 L D (14.0-18.0) g/dL Hct 38.4 L (40.0-52.0) % MCV 89.9 D (78.0-93.0) fL MCH 28.6 (26.0-32.0) pg MCHC 31.8 L (32.0-36.0) g/dL RDW Coeff of Deric 16.3 H (10.0-15.0) % Plt Count 258 (130-400) x10^3/uL Neut % (Auto) 86.1 H (50.0-80.0) % Lymph % (Auto) 8.8 L (25.0-50.0) % [place] % (Auto) 3.8 (2.0-11.0) % Eos % (Auto) 1.1 (0.0-4.0) % Baso % (Auto) 0.2 (0.2-1.2) % Sodium 140 (136-145) mmol/L Potassium 4.6 (3.5-5.1) mmol/L Chloride 103 (98-107) mmol/L Carbon Dioxide 25 (21-32) mmol/L Anion Gap 16.6 (10-20) mmol/L BUN 26 H (7-18) mg/dL Creatinine 1.9 H (0.70-1.30) mg/dL Est Cr Clr Drug Dosing 33.62 mL/min Estimated GFR (MDRD) 35 Glucose 154 H (74-106) mg/dL Calcium 9.7 (8.5-10.1) mg/dL Corrected Calcium 9.94 (8.5-10.1) mg/dL Total Bilirubin 0.6 (0.2-1.0) mg/dL AST 12 L (15-37) U/L ALT 18 (16-63) U/L Alkaline Phosphatase 80 (46-116) U/L Total Protein 7.3 (6.4-8.2) g/dL Albumin 3.7 (3.4-5.0) g/dL Globulin 3.6 Albumin/Globulin Ratio 1.03 Amylase 41 (25-115) U/L Lipase 213 (73-393) U/L Meds: Medications Generic Name Dose Route Start Last Admin Trade Name Freq PRN Reason Stop Dose Admin Sodium Chloride 1,000 mls @ 1,000 mls/hr 10/18/18 16:28 10/18/18 16:45 Normal Saline IV 10/18/18 17:27 1,000 mls/hr ONETIME ONE Administration Sodium Chloride 10 ml 10/18/18 15:49 Saline Flush FLUSH ASDIRECTED PRN Keep Vein Open Discontinued Medications Generic Name Dose Route Start Last Admin Trade Name Freq PRN Reason Stop Dose Admin Hydromorphone HCl 1 mg 10/18/18 16:40 10/18/18 16:45 Dilaudid IVPUSH 10/18/18 16:41 1 mg ONETIME ONE Administration Ketorolac Tromethamine 15 mg 10/18/18 15:53 10/18/18 16:00 Toradol IVPUSH 10/18/18 15:54 15 mg ONETIME ONE Administration Ketorolac Tromethamine 15 mg 10/18/18 17:13 Toradol IVPUSH 10/18/18 17:14 ONETIME ONE Ondansetron HCl 4 mg 10/18/18 15:54 10/18/18 16:13 Zofran IVPUSH 10/18/18 15:55 4 mg ONETIME ONE Administration Tamsulosin HCl 0.4 mg 10/18/18 17:13 Flomax PO 10/18/18 17:14 ONETIME ONE Departure - Departure Time of Disposition: 17:15 Disposition: Refer to Observation Clinical Impression: Right kidney stone Abdominal pain Qualifiers: Abdominal location: lower abdomen, unspecified Qualified Code(s): R10.30 - Lower abdominal pain, unspecified - Discharge Information *PRESCRIPTION DRUG MONITORING PROGRAM REVIEWED*: Not Applicable *COPY OF PRESCRIPTION DRUG MONITORING REPORT IN PATIENT LISA: Not Applicable Referrals: April Day [facility] [facility] [Primary Care Provider] - Forms: ED Department Discharge - Problem List Review Problem List Initiated/Reviewed/Updated: Yes - My Orders Last 24 Hours: My Active Orders 10/18/18 15:49 Sodium Chloride 0.9% [Saline Flush] 10 ml FLUSH ASDIRECTED PRN Saline Lock Insert [OM.PC] Routine 10/18/18 16:28 Sodium Chloride 0.9% [Normal Saline] 1,000 ml IV ONETIME 10/18/18 17:02 UA RFX DOROTHY AND CULT IF INDIC [URIN] Stat 10/18/18 17:14 Admission Status [Patient Status] [ADT] Routine - Assessment/Plan Admission H&P: Please use this note as an admission H&P Last 24 Hours: My Active Orders 10/18/18 15:49 Sodium Chloride 0.9% [Saline Flush] 10 ml FLUSH ASDIRECTED PRN Saline Lock Insert [OM.PC] Routine 10/18/18 16:28 Sodium Chloride 0.9% [Normal Saline] 1,000 ml IV ONETIME 10/18/18 17:02 UA RFX DOROTHY AND CULT IF INDIC [URIN] Stat 10/18/18 17:14 Admission Status [Patient Status] [ADT] Routine Assessment:: 1. abdominal pain 2. Kidney stone non obstructing Plan: 1. Labs completed in the ER. Results reviewed with the patient and family 2. CT completed in the ER. Results reviewed with the patient and family 3. IV Toradol and Zofran given for pain/comfort 4. Consult was complete with Dr. Bailey [facility] IR speciality who feels this discomfort and pain is not related to the AAA that he has a graft to. His suggestion is admit and monitor for pain and any worsening symptoms. If symptoms worsen can repeat scan and consult again. 5. Pt will be admitted observation for further monitoring of symptoms and pain control. 6. Slick Galan was contacted for he is manager of operations for [facility] for the weekend. He request admit to be placed under hospitalist service. #1- abdominal pain -Pain medications have been ordered -antinausea medications ordered -IV fluids given #2- right renal calculi -Pain medication ordered -Flomax provided in the ER. will order daily -IV fluids to help flush the kidneys -Labs to be completed in the am Pt will be admitted under hospitalist services for observation and monitoring of worsening symptoms.
[2018-10-18] MEDS ORDERED: Sodium Chloride 0.9% 1,000 ML IV ONE (16:28)
[2018-10-18] MEDS ORDERED: HYDROmorphone 1 MG/ML Syringe IVPUSH ONE (16:40)
[2018-10-18 16:56] LABS: ANION GAP 16.6 mmol/L (10-20)
--- NOTE | 2018-10-18 16:56 | CT ---
[id number] CT/CT Abdomen Pelvis WO IV EXAM: CT Abdomen Pelvis WO IV CLINICAL DATA: ABDOMEN PAIN. COMPARISON STUDY: None. FINDINGS: Suboptimal evaluation without the use of IV or oral contrast. Lung bases are clear. Liver, spleen, gallbladder, pancreas, and adrenal glands are unremarkable. Bilateral renal cysts. No hydronephrosis or hydroureter. Punctate nonobstructing right renal calculus. No bowel obstruction or inflammation. Colonic diverticulosis without evidence of acute diverticulitis. No lymphadenopathy, free fluid, or pneumoperitoneum. Again identified is a fusiform infrarenal abdominal aortic aneurysm status post endograft repair. The aneurysm sac size has not significant changed when compared to the prior study. Scattered changes of spondylosis the spine. No fracture or osseous lesion. IMPRESSION: 1. No definite acute CT findings within the abdomen or pelvis to explain the patient's symptoms. 2. Fusiform infrarenal abdominal aortic aneurysm status post endograft repair. The aneurysm sac size does not appear significant change when compared to the prior study. If concern for endoleak, multi phase CT of the abdomen and pelvis could be considered for further evaluation. Rudi Woodard DO 10/18/18 [id number] Thank you for allowing us to participate in the care of your patient.
[2018-10-18] MEDS ORDERED: Tamsulosin 0.4 MG Cap.ER PO ONE (17:13)
[2018-10-18] MEDS ORDERED: Ketorolac 30 MG/ML SDV IVPUSH PRN ×2 (18:01→18:57)
[2018-10-18] MEDS ORDERED: Ondansetron 4 MG/2 ML SDV IV PRN (18:01)
[2018-10-18] MEDS ORDERED: Acetaminophen 325 MG Tab PO PRN (18:01)
[2018-10-18] MEDS ORDERED: Ketorolac 15 MG/ML SDV IVPUSH PRN (18:57)
[2018-10-18] MEDS: Sodium Chloride 0.9% 1,000 ML IV SCH ×2 (19:22→22:31)
[2018-10-18] MEDS ORDERED: Gabapentin 300 MG Cap PO SCH (20:00)
[2018-10-18] MEDS ORDERED: Nortriptyline 25 MG Cap PO SCH (20:00)
[2018-10-18] MEDS ORDERED: Fluticasone-Salmeterol 113-14 MCG Powder Inhalant INH SCH (20:00)
[2018-10-18] MEDS ORDERED: Propranolol 60 MG Cap.ER PO SCH (20:00)
[2018-10-18] MEDS ORDERED: rOPINIRole 0.5 MG Tab PO SCH (20:00)
[2018-10-19] MEDS ORDERED: Hydrochlorothiazide 25 MG Tab PO SCH (08:00)
[2018-10-19] MEDS ORDERED: Simvastatin 20 MG Tab PO SCH (08:00)
[2018-10-19] MEDS ORDERED: Clopidogrel 75 MG Tab PO SCH (08:00)
[2018-10-19] MEDS ORDERED: buPROPion 150 MG Tab.ER PO SCH (08:00)
[2018-10-19] MEDS ORDERED: FLUoxetine 20 MG Cap PO SCH (08:00)
[2018-10-19] MEDS ORDERED: Tamsulosin 0.4 MG Cap.ER PO SCH (08:00)
[2018-10-19 08:16] LABS: ANION GAP 10.8 mmol/L (10-20)
[2018-10-19 10:07] VITALS: BP 95/58
[2018-10-19] MEDS: Sodium Chloride 0.9% 1,000 ML IV SCH (10:32)
--- NOTE | 2018-10-19 11:16 | PCM.DCSUM1 ---
Discharge Summary - Hospital Course HPI Initial Comments: Patient presented emergency Department with severe abdominal pain via ems. Patient states the pain started approximately one hour prior to arrival. He states sharpshooting tearing sensation in the lower abdomen. Patient denies any nausea, vomiting, chest pain, and shortness of breath. Patient does have a history of an aortic and lower abdominal aneurysm in the past with surgical intervention last intervention/repair June 2018. Labs and CT scan had been completed in the ED. Consultation was completed with Adeel for precaution measures related to his recent AAA. He felt the patients symptoms were not related to an endleak from the AAA. CT scan did see a 3-4mm stone without obstruction. Pt does have a history of stones and does have a prescription for daily flomax. However, he has been non compliant with his medication regiment according to his daughter. He was admitted due to uncontrolled pain. Over the course of the night the pt's pain has been controlled, tolerating diet, ambulating to the bathroom and has no concerns. Diagnosis: Stroke: No Modified [place] Scale: No Symptoms at All Modified [place]astacia Scale Score: 0 - Discharge Data Discharge Date: 10/19/18 Discharge Disposition: Home, Self-Care 01 Condition: Good - Discharge Diagnosis/Problem(s) (1) Abdominal pain SNOMED Code(s): 75567051 ICD Code: R10.9 - UNSPECIFIED ABDOMINAL PAIN Status: Acute Current Visit : Yes Qualifiers: Abdominal location: lower abdomen, unspecified Qualified Code(s): R10.30 - Lower abdominal pain, unspecified (2) Right kidney stone SNOMED Code(s): 00240855 ICD Code: N20.0 - CALCULUS OF KIDNEY Status: Acute Current Visit: Yes - Patient Instructions Diet: Usual Diet as Tolerated Activity: As Tolerated Driving: May Drive Today Showering/Bathing: May Shower - Discharge Plan *PRESCRIPTION DRUG MONITORING PROGRAM REVIEWED*: Not Applicable *COPY OF PRESCRIPTION DRUG MONITORING REPORT IN PATIENT LISA: Not Applicable Prescriptions/Med Rec: Ketorolac [Toradol] 10 mg PO TID PRN #20 tab PRN Reason: Pain Home Medications: Home Meds Clopidogrel [Plavix] 75 mg PO DAILY 09/05/14 [History] Gabapentin [Neurontin] 600 mg PO BEDTIME 09/05/14 [History] Multivitamin [Multi-Vitamin Daily] 1 tab PO DAILY 09/05/14 [History] Propranolol HCl [Inderal LA] 120 mg PO BEDTIME 09/05/14 [History] Albuterol [Proventil HFA] 2 puff INH Q4H PRN 06/29/15 [History] Fluticasone Propionate [Flonase] 1 spray NASBOTH DAILY PRN 06/29/15 [History] buPROPion [Wellbutrin XL] 150 mg PO DAILY 06/29/15 [History] Hydrochlorothiazide 0.5 tab PO DAILY 08/13/16 [History] Tamsulosin [Flomax] 0.4 mg PO DAILY 08/13/16 [History] rOPINIRole [Requip] 0.5 mg PO BEDTIME 08/13/16 [History] FLUoxetine HCl [Prozac] 20 mg PO DAILY 10/01/16 [History] Fluticasone/Salmeterol [Advair 250-50 Diskus] 1 each IH BID 11/25/17 [History] Simvastatin [Zocor] 20 mg PO DAILY 11/25/17 [History] Nortriptyline 25 mg PO BEDTIME 11/26/17 [History] Acetaminophen [Tylenol] 650 mg PO Q4H PRN tablet 10/19/18 [Rx] Ketorolac [Toradol] 10 mg PO TID PRN #20 tab 10/19/18 [Rx] Patient Handouts: Kidney Stones, [id number], Ketorolac tablets Forms: ED Department Discharge Referrals: April Day, [employer] [Primary Care Provider] - - Discharge Summary/Plan Comment DC Time >30 min.: No - General Info Date of Service: 10/19/18 Admission Dx/Problem (Free Text: 1. abdominal pain 2. Kidney Stone Subjective Update: #1- abdominal pain -Pain has been controlled overnight without difficultly -Pt is able to tolerate oral medications at this point #2- right renal calculi -Pt has an order Flomax order at home will have him continue with at home medication -Pt is urinating without difficulty or pain. Pt will be able to discharge home with oral regiment. Pt is advised to remain compliant with his medications. Increase his fluid intake and decrease alcohol and smoking. All questions and concerns were addressed prior to discharge. Functional Status: Reports: Pain Controlled, Tolerating Diet, Ambulating - Review of Systems General: Reports: No Symptoms HEENT: Reports: No Symptoms Pulmonary: Reports: No Symptoms Cardiovascular: Reports: No Symptoms Gastrointestinal: Reports: Abdominal Pain Genitourinary: Reports: No Symptoms Musculoskeletal: Reports: No Symptoms Skin: Reports: No Symptoms Neurological: Reports: No Symptoms Psychiatric: Reports: No Symptoms - Patient Data Vitals - Most Recent: Last Vital Signs Temp 36.6 C 10/19/18 10:00 Pulse 63 10/19/18 10:00 Resp 18 10/19/18 10:00 BP 95/58 L 10/19/18 10:00 Pulse Ox 92 L 10/19/18 10:00 Weight - Most Recent: 73.391 kg I&O - Last 24 hours: Intake & Output 10/18/18 10/19/18 10/19/18 22:59 06:59 14:59 Intake Total 1631 180 Output Total 410 150 Balance -410 1481 180 Lab Results - Last 24 hrs: Laboratory Results - last 24 hr 10/18/18 10/18/18 10/18/18 Range/Units 16:21 16:21 16:21 WBC 12.0 H (4.0-10.0) x10^3/uL RBC 4.27 L (4.5-6.0) x10^6/uL Hgb 12.2 L D (14.0-18.0) g/dL Hct 38.4 L (40.0-52.0) % MCV 89.9 D (78.0-93.0) fL MCH 28.6 (26.0-32.0) pg MCHC 31.8 L (32.0-36.0) g/dL RDW Coeff of Deric 16.3 H (10.0-15.0) % Plt Count 258 (130-400) x10^3/uL Neut % (Auto) 86.1 H (50.0-80.0) % Lymph % (Auto) 8.8 L (25.0-50.0) % [place] % (Auto) 3.8 (2.0-11.0) % Eos % (Auto) 1.1 (0.0-4.0) % Baso % (Auto) 0.2 (0.2-1.2) % Sodium 140 (136-145) mmol/L Potassium 4.6 (3.5-5.1) mmol/L Chloride 103 (98-107) mmol/L Carbon Dioxide 25 (21-32) mmol/L Anion Gap 16.6 (10-20) mmol/L BUN 26 H (7-18) mg/dL Creatinine 1.9 H (0.70-1.30) mg/dL Est Cr Clr Drug Dosing 33.62 mL/min Estimated GFR (MDRD) 35 Glucose 154 H (74-106) mg/dL Calcium 9.7 (8.5-10.1) mg/dL Corrected Calcium 9.94 (8.5-10.1) mg/dL Total Bilirubin 0.6 (0.2-1.0) mg/dL AST 12 L (15-37) U/L ALT 18 (16-63) U/L Alkaline Phosphatase 80 (46-116) U/L C-Reactive Protein 0.9 (<=0.9) mg/dL Total Protein 7.3 (6.4-8.2) g/dL Albumin 3.7 (3.4-5.0) g/dL Globulin 3.6 Albumin/Globulin Ratio 1.03 Amylase 41 (25-115) U/L Lipase 213 (73-393) U/L Urine Color (YELLOW) Urine Appearance (CLEAR) Urine pH (5.0-8.0) Ur Specific [place] Urine Protein (NEGATIVE) mg/dL Urine Glucose (UA) (NEGATIVE) mg/dL Urine Ketones (NEGATIVE) mg/dL Urine Occult Blood (NEGATIVE) Urine Nitrite (NEGATIVE) Urine Bilirubin (NEGATIVE) Urine Urobilinogen (0.2) EU/dL Ur Leukocyte Esterase (NEGATIVE) 10/19/18 10/19/18 10/19/18 Range/Units 05:20 07:26 07:26 WBC 6.0 (4.0-10.0) x10^3/uL RBC 3.49 L (4.5-6.0) x10^6/uL Hgb 10.0 L D (14.0-18.0) g/dL Hct 32.3 L (40.0-52.0) % MCV 92.6 (78.0-93.0) fL MCH 28.7 (26.0-32.0) pg MCHC 31.0 L (32.0-36.0) g/dL RDW Coeff of Deric 16.3 H (10.0-15.0) % Plt Count 208 (130-400) x10^3/uL Neut % (Auto) 73.8 (50.0-80.0) % Lymph % (Auto) 17.0 L (25.0-50.0) % [place] % (Auto) 7.2 (2.0-11.0) % Eos % (Auto) 1.8 (0.0-4.0) % Baso % (Auto) 0.2 (0.2-1.2) % Sodium 143 (136-145) mmol/L Potassium 3.8 (3.5-5.1) mmol/L Chloride 110 H (98-107) mmol/L Carbon Dioxide 26 (21-32) mmol/L Anion Gap 10.8 (10-20) mmol/L BUN 27 H (7-18) mg/dL Creatinine 1.8 H (0.70-1.30) mg/dL Est Cr Clr Drug Dosing 34.37 mL/min Estimated GFR (MDRD) 37 Glucose 82 (74-106) mg/dL Calcium 8.5 (8.5-10.1) mg/dL Corrected Calcium (8.5-10.1) mg/dL Total Bilirubin (0.2-1.0) mg/dL AST (15-37) U/L ALT (16-63) U/L Alkaline Phosphatase (46-116) U/L C-Reactive Protein (<=0.9) mg/dL Total Protein (6.4-8.2) g/dL Albumin (3.4-5.0) g/dL Globulin Albumin/Globulin Ratio Amylase (25-115) U/L Lipase (73-393) U/L Urine Color Ema H (YELLOW) Urine Appearance Slightly cloudy H (CLEAR) Urine pH 5.5 (5.0-8.0) Ur Specific [place] 1.025 Urine Protein Negative (NEGATIVE) mg/dL Urine Glucose (UA) Negative (NEGATIVE) mg/dL Urine Ketones Trace H (NEGATIVE) mg/dL Urine Occult Blood Negative (NEGATIVE) Urine Nitrite Negative (NEGATIVE) Urine Bilirubin Small H (NEGATIVE) Urine Urobilinogen 0.2 (0.2) EU/dL Ur Leukocyte Esterase Negative (NEGATIVE) Med Orders - Current: Current Medications Acetaminophen (Tylenol) 650 mg PO Q4H PRN PRN Reason: Pain (Mild 1-3)/fever Bupropion HCl (Wellbutrin Xl) 150 mg PO DAILY [facility] Last Admin: 10/19/18 07:26 Dose: 150 mg Clopidogrel Bisulfate (Plavix) 75 mg PO DAILY [facility] Last Admin: 10/19/18 07:26 Dose: 75 mg Fluoxetine HCl (Prozac) 20 mg PO DAILY [facility] Last Admin: 10/19/18 07:25 Dose: 20 mg Gabapentin (Neurontin) 600 mg PO BEDTIME [facility] Last Admin: 10/18/18 20:03 Dose: 600 mg Hydrochlorothiazide (Hydrochlorothiazide) 12.5 mg PO DAILY [facility] Last Admin: 10/19/18 07:25 Dose: 12.5 mg Sodium Chloride (Normal Saline) 1,000 mls @ 150 mls/hr IV ASDIRECTED [facility] Last Admin: 10/19/18 10:32 Dose: 150 mls/hr Ketorolac Tromethamine (Toradol) 15 mg IVPUSH Q6H PRN PRN Reason: Pain (moderate 4-6) Last Admin: 10/19/18 04:55 Dose: 15 mg Nortriptyline HCl (Nortriptyline) 25 mg PO BEDTIME [facility] Last Admin: 10/18/18 20:03 Dose: 25 mg Ondansetron HCl (Zofran) 4 mg IV Q4H PRN PRN Reason: Nausea/Vomiting Propranolol HCl (Inderal La) 120 mg PO BEDTIME [facility] Last Admin: 10/18/18 20:03 Dose: 120 mg Ropinirole HCl (Requip) 0.5 mg PO BEDTIME [facility] Last Admin: 10/18/18 20:03 Dose: 0.5 mg Fluticasone/Salmeterol (Fluticasone-Salmeterol 113-14 Mcg Powder Inh) 1 puff INH BID [facility] Simvastatin (Zocor) 20 mg PO DAILY [facility] Last Admin: 10/19/18 07:26 Dose: 20 mg Sodium Chloride (Saline Flush) 10 ml FLUSH ASDIRECTED PRN PRN Reason: Keep Vein Open Last Admin: 10/19/18 04:54 Dose: 10 ml Tamsulosin HCl (Flomax) 0.4 mg PO DAILY [facility] Last Admin: 10/19/18 07:26 Dose: 0.4 mg Discontinued Medications Hydromorphone HCl (Dilaudid) 1 mg IVPUSH ONETIME ONE Stop: 10/18/18 16:41 Last Admin: 10/18/18 16:45 Dose: 1 mg Sodium Chloride (Normal Saline) 1,000 mls @ 1,000 mls/hr IV ONETIME ONE Stop: 10/18/18 17:27 Last Admin: 10/18/18 16:45 Dose: 1,000 mls/hr Ketorolac Tromethamine (Toradol) 15 mg IVPUSH ONETIME ONE Stop: 10/18/18 15:54 Last Admin: 10/18/18 16:00 Dose: 15 mg Ketorolac Tromethamine (Toradol) 15 mg IVPUSH ONETIME ONE Stop: 10/18/18 17:14 Last Admin: 10/18/18 17:15 Dose: 15 mg Ketorolac Tromethamine (Toradol) 30 mg IVPUSH Q6H PRN PRN Reason: Pain (moderate 4-6) Ketorolac Tromethamine (Toradol) 15 mg IVPUSH Q6H PRN PRN Reason: Pain (moderate 4-6) Ondansetron HCl (Zofran) 4 mg IVPUSH ONETIME ONE Stop: 10/18/18 15:55 Last Admin: 10/18/18 16:13 Dose: 4 mg Tamsulosin HCl (Flomax) 0.4 mg PO ONETIME ONE Stop: 10/18/18 17:14 Last Admin: 10/18/18 17:21 Dose: 0.4 mg - Exam General: Reports: Alert, Oriented HEENT: Reports: Pupils Equal, Pupils Reactive, EOMI, Mucous Membr. Moist/[place] Neck: Reports: Supple Lungs: Reports: Clear to Auscultation, Normal Respiratory Effort Cardiovascular: Reports: Regular Rate, Regular Rhythm GI/Abdominal Exam: Normal Bowel Sounds, Soft, Non-Tender, No Distention Back Exam: Reports: Normal Inspection, Full Range of Motion Extremities: Normal Inspection, Normal Range of Motion, Non-Tender, No Pedal Edema Skin: Reports: Warm, Dry, Intact Wound/Incisions: Reports: Healing Well Neurological: Reports: No New Focal Deficit Psy/Mental Status: Reports: Alert, Normal Affect, Normal Mood
== END 2018-10-19 13:38 | disposition home or self-care (01) ==
LOC: VM.ED 15:30 → VM.MS 17:14
PROVIDERS: ADMIT Nurse Practitioner; ATTEND Nurse Practitioner
DX: R10.30 Lower abdominal pain, unspecified (principal); N20.0 Calculus of kidney; J44.9 Chronic obstructive pulmonary disease, unspecified; I10 Essential (primary) hypertension; I71.4 Abdominal aortic aneurysm, without rupture; E78.00 Pure hypercholesterolemia, unspecified; Z86.73 Personal history of transient ischemic attack (TIA), and cerebral infarction without residual deficits; Z79.02 Long term (current) use of antithrombotics/antiplatelets; Z79.899 Other long term (current) drug therapy
CPT/HCPCS: 36415; 74176; 80048; 80053; 81003; 82150; 83690; 85025; 86140; 96361; 96374; 96375; 96376; 99217; 99220; 99285-25; A9270-GY; G0378; J1170; J1885; J2405; J7030

== ENCOUNTER 2019-11-17 16:44 | Emergency (ER) | payer MEDICARE, OTHER ==
[2019-11-17] MEDS ORDERED: Lidocaine 1% with EPINEPHrine 1:100,000 20 ML MDV ONE (17:14)
--- NOTE | 2019-11-17 17:21 | EDM.PDOC ---
ED HPI GENERAL MEDICAL PROBLEM - General Chief Complaint: Syncope Stated Complaint: Fall status post syncope with a head laceration Time Seen by Provider: 11/17/19 16:45 Source of Information: Reports: Patient, EMS History Limitations: Reports: No Limitations - History of Present Illness INITIAL COMMENTS - FREE TEXT/NARRATIVE: Patient states he was going to get a vacuum to clean up something that he had spilled then he states he must of passed out the next thing he knows he was waking up going to the bathroom to wash the blood off his face and head when his daughter came into the house and called 911 He states he does not remember anything that caused him to fall but he states he has no complaints at this time he denies any chest pain or shortness of breath lightheadedness dizziness weakness nausea or vomiting or vision changes says he has been doing fine until this passing out episode He is currently taking Eliquis Onset: Today, Sudden Duration: Minutes: Quality: Reports: Other (No pain) - Related Data Allergies Allergy/AdvReac Type Severity Reaction Status Date / Time penicillin G Allergy Hives Verified 11/17/19 20:10 rosuvastatin calcium AdvReac Leg Cramps Verified 11/17/19 20:10 [From Crestor] Home Meds: Home Meds Clopidogrel [Plavix] 75 mg PO DAILY 09/05/14 [History] Gabapentin [Neurontin] 600 mg PO BEDTIME 09/05/14 [History] Multivitamin [Multi-Vitamin Daily] 1 tab PO DAILY 09/05/14 [History] Propranolol HCl [Inderal LA] 120 mg PO BEDTIME 09/05/14 [History] Albuterol [Proventil HFA] 2 puff INH Q4H PRN 06/29/15 [History] Fluticasone Propionate [Flonase] 1 spray NASBOTH DAILY PRN 06/29/15 [History] buPROPion [Wellbutrin XL] 150 mg PO DAILY 06/29/15 [History] Hydrochlorothiazide 0.5 tab PO DAILY 08/13/16 [History] Tamsulosin [Flomax] 0.4 mg PO DAILY 08/13/16 [History] rOPINIRole [Requip] 0.5 mg PO BEDTIME 08/13/16 [History] FLUoxetine HCl [Prozac] 20 mg PO DAILY 10/01/16 [History] Fluticasone Propion/Salmeterol [Advair 250-50 Diskus] 1 each IH BID 11/25/17 [ History] Simvastatin [Zocor] 20 mg PO DAILY 11/25/17 [History] Nortriptyline 25 mg PO BEDTIME 11/26/17 [History] Acetaminophen [Tylenol] 650 mg PO Q4H PRN tablet 10/19/18 [Rx] Ketorolac [Toradol] 10 mg PO TID PRN #20 tab 10/19/18 [Rx] Past Medical History HEENT History: Reports: Allergic Rhinitis, Hard of Hearing, Impaired Vision, Sinusitis Other HEENT History: chronic sinusitis, bilat hearing aids, glasses Cardiovascular History: Reports: Aneurysm, High Cholesterol, Hypertension Other Cardiovascular History: subclavian artery stonsis-left, AAA x 2 Respiratory History: Reports: COPD, Sleep Apnea Other Respiratory History: Pneumonia in June of 2015, pleural effusion, collapsed lung, chest tube Gastrointestinal History: Reports: Colon Polyp, Diverticulosis, GERD, Hemorrhoids, Irritable Bowel Syndrome Other Gastrointestinal History: abdominal aortic aneursymn x 2 Genitourinary History: Reports: Other (See Below) Other Genitourinary History: suspects enlarged prostate due to unable to start urine stream Musculoskeletal History: Reports: Arthritis, Back Pain, Chronic Other Musculoskeletal History: degenerative joint disease, restless leg syndrome , raynauds sydrome, essential tremor, weakness, hx of rib fx, right wrist fx, right hand Neurological History: Reports: CVA, Neuropathy, Peripheral Other Neuro History: near syncope Psychiatric History: Reports: Addiction, Anxiety, Depression, Emotional Problems , Suicidal Ideation Other Psychiatric History: recently lost his to cancer Endocrine/Metabolic History: Reports: None Other Endocrine/Metabolic History: vitamin B12 deficiency, impaired fasting glucose Hematologic History: Reports: B12 Deficiency Other Hematologic History: take Plavix Immunologic History: Reports: None Oncologic (Cancer) History: Reports: Other (See Below) Other Oncologic History: lipoma of buttock Dermatologic History: Reports: None - Past Surgical History Head Surgeries/Procedures: Reports: None Musculoskeletal Surgical History: Reports: Ganglion Cyst, Joint Replacement, Knee Replacement Dermatological Surgical History: Reports: None Social & Family History - Family History Family Medical History: Noncontributory Cardiac: Reports: CAD, Cardiomyopathy, High Cholesterol, Hypertension, [place] Musculoskeletal: Reports: Arthritis, Back pain, Chronic Neurological: Reports: CVA Other Neurological Family History: sister had CVA Oncologic: Reports: Leukemia Other Oncologic Family History: father of Leukemia - Caffeine Use Caffeine Use: Reports: None ED ROS GENERAL - Review of Systems Review Of Systems: See Below Constitutional: Reports: No Symptoms. Denies: Fever, Chills, Malaise, Weakness , Fatigue HEENT: Reports: No Symptoms Respiratory: Reports: No Symptoms Cardiovascular: Reports: Syncope. Denies: Chest Pain, Blood Pressure Problem, Claudication, Dyspnea on Exertion, Lightheadedness, Orthopnea Endocrine: Denies: No Symptoms GI/Abdominal: Reports: No Symptoms : Reports: No Symptoms Musculoskeletal: Reports: No Symptoms Skin: Reports: No Symptoms Neurological: Reports: No Symptoms Psychiatric: Reports: No Symptoms Hematologic/Lymphatic: Reports: No Symptoms Immunologic: Reports: No Symptoms ED EXAM, HEAD INJURY - Physical Exam Exam: See Below Exam Limited By: No Limitations General Appearance: Alert, WD/WN, No Apparent Distress Head: Normocephalic, Scalp Lacerations, Scalp Swelling, Active Bleeding, Other ( Left lateral face in the brow line there is approximately a 1 and half centimeter superficial jagged laceration with active bleeding no tenderness palpation over any of the facial bones secondary to the patient being on blood thinner and having a syncopal episode I will scan his head and neck). No: Atraumatic, Scalp Abrasions, Scalp Ecchymosis, Scalp Tenderness, Skaggs's Sign, Facial Abrasions, Facial Ecchymosis, Facial Swelling, Sinus Tenderness, Facial Tenderness Nexus Criteria: No: Posterior, Midline Cervical Tenderness, Evidence of Intoxication, Altered Level of Consciousness, Focal Neurological Deficit Eyes: Bilateral Eye: Normal Inspection, PERRL Ears: Normal External Exam, Normal Canal, Hearing Grossly Normal, Normal TMs. No: TM Blood Nose: Normal Inspection, Normal Mucousa, No Blood Throat/Mouth: Normal Inspection, Normal Lips, Normal Teeth, Normal Gums, Normal Oropharynx, Normal Voice, No Airway Compromise Neck: Non-Tender, Full Range of Motion, Normal Alignment, Normal Inspection Respiratory: No Respiratory Distress, Lungs Clear, Normal Breath Sounds, No Accessory Muscle Use, Chest Non-Tender Cardiovascular: Normal Peripheral Pulses, Regular Rate, Rhythm, No Edema, No Gallop, No JVD, No Murmur, No Rub GI/Abdominal Exam: Normal Bowel Sounds, Soft, Non-Tender, No Organomegaly, No Distention Back Exam: Normal Inspection, Full Range of Motion. No: Decreased Range of Motion Extremities: Normal Inspection, Normal Range of Motion, Non-Tender, No Pedal Edema, Normal Capillary Refill, Other (Equal frame expander 5 5 upper extremity lower extremity) Neurologic: quality engineer medical device II-XII nml As Tested, No Motor/Sensory Deficits, Alert, Normal Mood/Affect, Oriented x 3 Skin: Normal Color, Warm/Dry - [place]ford Coma Score Best Eye Response (Marcos): (4) Open Spontaneously Best Verbal Response (Marcos): (5) Oriented Best Motor Response (Graford): (6) Obeys Commands Course - Vital Signs Text/Narrative:: CBC BMP troponin EKG CT head neck Per radiology small-volume acute left frontal subarachnoid hemorrhage [facility] was called [phone] for transfer to [facility] with Dr. dash in the emergency room will accept transfer and coordinate care with neuro Patient was rechecked is neurologically intact alert and oriented x4 and holding his airway with no issues - Orders/Labs/Meds Labs: Laboratory Tests 11/17/19 11/17/19 11/17/19 Range/Units 17:25 17:25 17:25 WBC 6.9 (4.0-10.0) x10^3/uL RBC 3.56 L (4.5-6.0) x10^6/uL Hgb 10.4 L (14.0-18.0) g/dL Hct 32.1 L (40.0-52.0) % MCV 90.2 (78.0-93.0) fL MCH 29.2 (26.0-32.0) pg MCHC 32.4 (32.0-36.0) g/dL RDW Coeff of Deric 16.3 H (10.0-15.0) % Plt Count 211 (130-400) x10^3/uL Neut % (Auto) 76.9 (50.0-80.0) % Lymph % (Auto) 13.9 L (25.0-50.0) % Hettinger % (Auto) 6.4 (2.0-11.0) % Eos % (Auto) 2.5 (0.0-4.0) % Baso % (Auto) 0.3 (0.2-1.2) % PT 10.1 (9.5-12.3) SEC INR 0.9 L (2.0-3.5) Sodium 145 (136-145) mmol/L Potassium 4.3 (3.5-5.1) mmol/L Chloride 107 (98-107) mmol/L Carbon Dioxide 25 (21-32) mmol/L Anion Gap 17.3 (10-20) mmol/L BUN 17 (7-18) mg/dL Creatinine 1.6 H (0.70-1.30) mg/dL Est Cr Clr Drug Dosing TNP Estimated GFR (MDRD) 42 Glucose 138 H (74-106) mg/dL Calcium 8.6 (8.5-10.1) mg/dL Troponin I < 0.040 (<=0.056) ng/mL Meds: Medications Discontinued Medications Generic Name Dose Route Start Last Admin Trade Name Jeffryq PRN Reason Stop Dose Admin Lidocaine/Epinephrine Confirm 11/17/19 17:14 Xylocaine 1% With Epinephrine 1:100,000 Administered 11/17/19 17:15 Dose 20 ml .ROUTE .STK-MED ONE Departure - Departure Time of Disposition: 18:15 Disposition: DC/Tfer to Acute Hospital 02 Condition: Good Clinical Impression: Subarachnoid hemorrhage, Syncope and collapse, Laceration of forehead - Discharge Information Referrals: April Day, [employer] [Primary Care Provider] - Forms: ED Department Discharge, Interfacility Transfer MARY Sepsis Event Note - Focused Exam Date Exam was Performed: 11/17/19 Time Exam was Performed: 20:47 - Problem List & Annotations (1) Forehead laceration SNOMED Code(s): 703970681 Code(s): S01.81XA - LACERATION W/O FOREIGN BODY OF OTH PART OF HEAD, INIT ENCNTR Status: Acute Current Visit: Yes (2) Subarachnoid hemorrhage SNOMED Code(s): 802516931 Code(s): I60.9 - NONTRAUMATIC SUBARACHNOID HEMORRHAGE, UNSPECIFIED Status: Acute Current Visit: Yes (3) Syncope and collapse SNOMED Code(s): 180708188 Code(s): R55 - SYNCOPE AND COLLAPSE Status: Acute Current Visit: Yes
[2019-11-17 17:56] LABS: ANION GAP 17.3 mmol/L (10-20); CHLORIDE,CL 107 mmol/L (98-107); SODIUM,NA 145 mmol/L (136-145)
--- NOTE | 2019-11-17 18:13 | CT ---
[id number] CT/CT Head WO IV EXAM: NONCONTRAST HEAD CT INDICATION: Trauma on anticoagulation. COMPARISON: November 25, 2017. DISCUSSION: There is moderate generalized atrophy. Mild multifocal white matter hypoattenuation is nonspecific, but generally ascribed to chronic small vessel ischemia. No mass effect or midline shift. Small volume subarachnoid hemorrhage within the left frontal sulci. No other areas of hemorrhage are identified. No acute territorial infarct is identified. Mild left maxillary sinus mucosal thickening. Left anterior scalp soft tissue swelling. IMPRESSION: 1. Small volume acute left frontal subarachnoid hemorrhage. Raz Vega MD 11/17/19 [id number] Thank you for allowing us to participate in the care of your patient.
--- NOTE | 2019-11-17 18:15 | CT ---
[id number] CT/CT Cervical Spine WO IV EXAM: NONCONTRAST CERVICAL SPINE CT INDICATION: TRAUMA, ON THINNERS. COMPARISON: September 25, 2017. DISCUSSION: Stable mild spondylolisthesis C2-C3 and C3-C4. The vertebral bodies are otherwise normal in height and alignment. No fracture or suspicious osseous lesion is identified. Changes of diffuse idiopathic skeletal hyperostosis. Moderate to advanced degenerative disc disease C3-C4, C4-C5 and C5-C6 with milder changes at the remaining disc levels. Moderate to advanced facet arthropathy throughout the cervical spine. Emphysematous changes are noted in the lung apices. IMPRESSION: 1. No evidence of acute cervical spine trauma. 2. Moderate to advanced cervical spondylosis is similar to previous examinations. Raz Vega MD 11/17/19 [id number] Thank you for allowing us to participate in the care of your patient.
[2019-11-17 22:02] VITALS: PULSE 76
[2019-11-17 22:03] VITALS: BP 143/60
== END 2019-11-17 18:53 | disposition short-term general hospital (02) ==
LOC: SUPCPDRO 16:44 → VM.ED 16:44
DX: S06.6X9A Traumatic subarachnoid hemorrhage with loss of consciousness of unspecified duration, initial encounter (principal); R55 Syncope and collapse; S01.81XA Laceration without foreign body of other part of head, initial encounter; E78.00 Pure hypercholesterolemia, unspecified; I10 Essential (primary) hypertension; J44.9 Chronic obstructive pulmonary disease, unspecified; G62.9 Polyneuropathy, unspecified; F41.9 Anxiety disorder, unspecified; F32.9 Major depressive disorder, single episode, unspecified; I73.00 Raynaud's syndrome without gangrene; Z88.0 Allergy status to penicillin; Z86.73 Personal history of transient ischemic attack (TIA), and cerebral infarction without residual deficits; Z88.8 Allergy status to other drugs, medicaments and biological substances; Z79.02 Long term (current) use of antithrombotics/antiplatelets; Z79.01 Long term (current) use of anticoagulants; G25.81 Restless legs syndrome
CPT/HCPCS: 36415; 70450; 72125; 80048; 84484; 85025; 85610; 99284-GF; 99285-25